=== PATIENT | female | born 1940 | race Caucasian/White ===

== ENCOUNTER 2017-11-25 14:03 | Inpatient (IN) | payer OTHER ==
[~2017-11-25] VITALS: Ht 157.5 cm; Wt 98.4 kg
[2017-11-25] MEDS ORDERED: ACETAMINOPHEN 650 MG SUPPOSITORY RC ONE (14:17)
[2017-11-25] MEDS ORDERED: IPRATROPIUM/ALBUTEROL SULFATE 3 ML SOLUTION IH ONE (14:21)
[2017-11-25 14:22] LABS: BASOPHILS % (AUTO) 0.4 % (0.0-5.0); EOSINOPHILS % (AUTO) 0.7 % (0.0-8.0); LYMPHOCYTES % (AUTO) 6.6 % (21.0-51.0); MEAN CORPUSCULAR HEMOGLOBIN 26.1 pg (27.0-33.0); MEAN CORPUSCULAR HGB CONC 30.6 g/dL (32.0-36.0); MEAN CORPUSCULAR VOLUME 85.3 fL (79-99); MONOCYTES % (AUTO) 7.2 % (3.0-13.0); NEUTROPHILS % (AUTO) 85.1 % (40.0-77.0); NUCLEATED RED BLOOD CELLS 0.1 % (0.0-0.19); PLATELET COUNT (AUTO) 303 K/uL (130-400); RED BLOOD CELL COUNT(AUTO) 3.41 MIL/uL (4.00-5.50); RED CELL DISTRIBUTION WIDTH 17.3 % (11.0-15.5); WHITE BLOOD COUNT (AUTO) 12.4 K/uL (4.8-10.8)
[2017-11-25] MEDS ORDERED: METHYLPREDNISOLONE SOD SUCC 125MG/2ML VIAL ONE ×2 (14:22→23:49)
[2017-11-25 14:36] LABS: CREATININE 1.1 mg/dL (0.5-1.5); POTASSIUM 5.4 mmol/L (3.5-5.1)
[2017-11-25 14:41] LABS: B-TYPE NATRIURETIC PEPTIDE 1470 pg/mL (0-100)
[2017-11-25 14:43] LABS: APPEARANCE,URINE Clear (CLEAR); BILIRUBIN,URINE Negative (NEGATIVE); COLOR,URINE Yellow (YELLOW); GLUCOSE, URINE (UA) Negative (NEGATIVE); KETONES,URINE Negative (NEGATIVE); LEUKOCYTE ESTERASE ,URINE Negative (NEGATIVE); NITRATE,URINE Negative (NEGATIVE); OCCULT BLOOD,URINE Negative (NEGATIVE); PROTEIN,URINE 300 (NEGATIVE); UROBILINOGEN,URINE 0.2 mg/dL (0.2-1.0)
[2017-11-25 14:52] LABS: ALBUMIN 3.1 g/dL (3.5-5.0); BILIRUBIN,TOTAL 0.8 mg/dL (0.2-1.0); TOTAL PROTEIN, SERUM 5.9 g/dL (6.0-8.3)
[2017-11-25 14:55] LABS: AMORPHOUS SEDIMENT,UR Few /LPF (None Seen); BACTERIA,URINE Few /HPF (None Seen); COARSE GRANULAR CASTS,URINE 0-2 /LPF (None Seen); RBC,URINE 0-1 /HPF (0-1); SQUAMOUS EPITHELIAL CELL,UR Rare /LPF (0-2); WBC,URINE 0-1 /HPF (0-1)
[2017-11-25] MEDS ORDERED: LEVOFLOXACIN 750 MG/D5W 150 ML 150 ML ONE (15:02)
[2017-11-25 15:28] LABS: CREATINE KINASE MB 0.5 ng/mL (0.5-3.6)
[2017-11-25] MEDS ORDERED: OSELTAMIVIR PHOSPHATE 75 MG CAP ONE (15:34)
[2017-11-25 15:43] LABS: ABG BASE EXCESS 3.2 mmol/L (-2.0-3.0); ABG HCO3 30.1 mmol/L (21.0-28.0); ABG OXYGEN SATURATION 96.9 % (95.0-99.0); ABG PCO2 55 mmHg (32-45)
[2017-11-25] MEDS ORDERED: FUROSEMIDE 10 MG/ML 4ML VIAL ONE (17:29)
[2017-11-25] MEDS ORDERED: CEFTRIAXONE SODIUM 1 GM ONE (17:30)
[2017-11-25] MEDS ORDERED: LIDOCAINE HCL-MPF 1% 2ML VIAL IVP PRN ×2 (21:30→22:00)
[2017-11-25] MEDS ORDERED: POTASSIUM CHLORIDE 20MEQ/100ML 100 ML IV PRN ×2 (21:30→22:00)
[2017-11-25] MEDS ORDERED: ACETAMINOPHEN 325 MG TAB PO PRN ×2 (21:30)
[2017-11-25] MEDS ORDERED: GUAIFENESIN-DM 200/20 MG 10 ML PO PRN (21:30)
[2017-11-25] MEDS ORDERED: NITROGLYCERIN 0.4 MG SL TAB SL PRN (21:30)
[2017-11-25] MEDS ORDERED: POTASSIUM CHLORIDE 10% ELIXIR 20 MEQ/15 ML UDCUP PO PRN ×2 (21:30→22:00)
[2017-11-25] MEDS ORDERED: ONDANSETRON HCL 4 MG/2 ML VIAL IV PRN (21:30)
[2017-11-25] MEDS ORDERED: GLUCAGON 1MG KIT 1 MG ML IM PRN (22:00)
[2017-11-25] MEDS ORDERED: DEXTROSE 50%-WATER 50 ML DISP.SYRIN IV PRN (22:00)
[2017-11-25] MEDS ORDERED: POTASSIUM CHLORIDE 20 MEQ ERTAB PO PRN (22:00)
[2017-11-25 23:10] LABS: CREATINE KINASE MB 0.7 ng/mL (0.5-3.6); TROPONIN I 0.11 ng/mL (0.00-0.06)
[2017-11-25] MEDS ORDERED: ZOLPIDEM TARTRATE 5 MG TAB ONE (23:17)
[2017-11-26] MEDS ORDERED: IPRATROPIUM/ALBUTEROL SULFATE 3 ML SOLUTION IH ONE ×3 (00:33→11:45)
[2017-11-26] MEDS ORDERED: OSELTAMIVIR PHOSPHATE 75 MG CAP ONE (03:57)
[2017-11-26 04:00] LABS: ABG HCO3 24.8 mmol/L (21.0-28.0); ABG OXYGEN SATURATION 97.8 % (95.0-99.0); ABG PCO2 50 mmHg (32-45)
[2017-11-26 05:58] LABS: MEAN CORPUSCULAR HEMOGLOBIN 26.2 pg (27.0-33.0); MEAN CORPUSCULAR HGB CONC 30.9 g/dL (32.0-36.0); MEAN CORPUSCULAR VOLUME 84.7 fL (79-99); PLATELET COUNT (AUTO) 268 K/uL (130-400); RED BLOOD CELL COUNT(AUTO) 3.19 MIL/uL (4.00-5.50); RED CELL DISTRIBUTION WIDTH 18.3 % (11.0-15.5); WHITE BLOOD COUNT (AUTO) 9.7 K/uL (4.8-10.8)
[2017-11-26] MEDS: IPRATROPIUM/ALBUTEROL SULFATE 3 ML SOLUTION IH SCH ×5 (06:00→23:13)
[2017-11-26 06:06] LABS: CREATININE 1.3 mg/dL (0.5-1.5); POTASSIUM 4.8 mmol/L (3.5-5.1)
[2017-11-26 06:32] LABS: CREATINE KINASE MB 0.8 ng/mL (0.5-3.6); TROPONIN I 0.06 ng/mL (0.00-0.06)
[2017-11-26] MEDS ORDERED: ENOXAPARIN SODIUM 40 MG/0.4 ML SYRINGE SQ ONE (08:02)
[2017-11-26] MEDS ORDERED: FAMOTIDINE 20MG TAB 20 MG TAB ONE (08:02)
[2017-11-26] MEDS ORDERED: ASPIRIN 325 MG TABLET ONE (08:02)
[2017-11-26] MEDS ORDERED: FUROSEMIDE 10 MG/ML 4ML VIAL ONE (08:02)
[2017-11-26] MEDS ORDERED: METHYLPREDNISOLONE SOD SUCC 125MG/2ML VIAL ONE (08:03)
[2017-11-26] MEDS ORDERED: FUROSEMIDE 10 MG/ML 4ML VIAL IVP SCH (09:00)
[2017-11-26] MEDS ORDERED: ENOXAPARIN SODIUM 40 MG/0.4 ML SYRINGE SQ SCH (09:00)
[2017-11-26] MEDS ORDERED: HYDRALAZINE HCL 20 MG/ML VIAL IV PRN (10:15)
[2017-11-26 11:33] LABS: INR 2.61 (0.85-1.15); PARTIAL THROMBOPLASTIN TIME 36.8 SEC (26.3-35.5); PROTHROMBIN TIME 26.9 SEC (9.6-11.6)
[2017-11-26] MEDS ORDERED: ACETYLCYSTEINE 20% 200MG/ML 4ML VIAL ONE (11:45)
[2017-11-26] MEDS: ACETYLCYSTEINE 20% 200MG/ML 4ML VIAL IH SCH ×2 (11:47→18:17)
[2017-11-26] MEDS ORDERED: ALBUTEROL SULFATE 0.083% 2.5 MG/3 ML INH IH SCH (12:00)
[2017-11-26] MEDS ORDERED: GUAIFENESIN-CODEINE 5 ML SYRUP PO PRN (12:30)
[2017-11-26 15:33] VITALS: BP 176/54
[2017-11-26] MEDS: METHYLPREDNISOLONE SOD SUCC 125MG/2ML VIAL IVP SCH ×3 (16:08→21:33)
[2017-11-26] MEDS: LEVOFLOXACIN 500 MG/D5W 100 ML 100 ML IV SCH ×2 (16:08→21:33)
[2017-11-26] MEDS: NITROGLYCERIN 1GM/1 INCH PACKET TD SCH ×2 (16:09→18:07)
[2017-11-26] MEDS: ASPIRIN 325 MG TABLET PO SCH (16:09)
[2017-11-26] MEDS: FAMOTIDINE 20MG TAB 20 MG TAB PO SCH ×2 (16:09→21:34)
[2017-11-26] MEDS: OSELTAMIVIR PHOSPHATE 75 MG CAP PO SCH ×2 (16:09→21:32)
[2017-11-26] MEDS: WARFARIN SODIUM 2 MG TAB PO SCH (16:18)
[2017-11-26] MEDS: INSULIN HUMULIN R 100 UNIT/ML 3ML SQ SCH ×2 (17:31→22:11)
[2017-11-26] MEDS: BUDESONIDE 0.5 MG/2 ML INH IH SCH (18:17)
[2017-11-26 20:09] VITALS: BP 135/58
[2017-11-26] MEDS ORDERED: FUROSEMIDE 10 MG/ML 2ML VIAL IVP SCH (21:00)
[2017-11-26] MEDS ORDERED: ZOLPIDEM TARTRATE 5 MG TAB PO SCH (21:00)
[2017-11-26] MEDS: FUROSEMIDE 10 MG/ML 4ML VIAL IVP SCH (21:33)
[2017-11-26] MEDS ORDERED: ZOLPIDEM TARTRATE 5 MG TAB ONE (21:38)
[2017-11-27] VITALS (7 sets, daily range): BP systolic 141–182; BP diastolic 61–78
[2017-11-27] MEDS: NITROGLYCERIN 1GM/1 INCH PACKET TD SCH ×2 (02:40→09:42)
[2017-11-27] MEDS: IPRATROPIUM/ALBUTEROL SULFATE 3 ML SOLUTION IH SCH ×4 (05:01→22:58)
[2017-11-27] MEDS: ACETYLCYSTEINE 20% 200MG/ML 4ML VIAL IH SCH (05:01)
[2017-11-27] MEDS: METHYLPREDNISOLONE SOD SUCC 125MG/2ML VIAL IVP SCH ×2 (05:12→20:53)
[2017-11-27 05:18] LABS: HEMATOCRIT 26.1 % (36-48); MEAN CORPUSCULAR HEMOGLOBIN 27.1 pg (27.0-33.0); MEAN CORPUSCULAR HGB CONC 32.3 g/dL (32.0-36.0); MEAN CORPUSCULAR VOLUME 83.9 fL (79-99); PLATELET COUNT (AUTO) 282 K/uL (130-400); RED BLOOD CELL COUNT(AUTO) 3.11 MIL/uL (4.00-5.50); RED CELL DISTRIBUTION WIDTH 17.6 % (11.0-15.5); WHITE BLOOD COUNT (AUTO) 13.9 K/uL (4.8-10.8)
[2017-11-27 05:29] LABS: CREATININE 1.5 mg/dL (0.5-1.5); POTASSIUM 4.5 mmol/L (3.5-5.1)
[2017-11-27 05:30] LABS: INR 2.64 (0.85-1.15); PARTIAL THROMBOPLASTIN TIME 33.7 SEC (26.3-35.5); PROTHROMBIN TIME 27.2 SEC (9.6-11.6)
[2017-11-27 05:53] LABS: B-TYPE NATRIURETIC PEPTIDE 874 pg/mL (0-100)
[2017-11-27] MEDS: BUDESONIDE 0.5 MG/2 ML INH IH SCH ×2 (05:56→19:33)
[2017-11-27] MEDS: INSULIN HUMULIN R 100 UNIT/ML 3ML SQ SCH ×4 (06:23→20:40)
[2017-11-27] MEDS: FAMOTIDINE 20MG TAB 20 MG TAB PO SCH ×2 (07:56→20:52)
[2017-11-27] MEDS: ASPIRIN 325 MG TABLET PO SCH (07:56)
[2017-11-27] MEDS: OSELTAMIVIR PHOSPHATE 75 MG CAP PO SCH ×2 (07:56→20:52)
[2017-11-27] MEDS: FUROSEMIDE 10 MG/ML 4ML VIAL IVP SCH (07:56)
[2017-11-27] MEDS ORDERED: ENOXAPARIN SODIUM 40 MG/0.4 ML SYRINGE SQ SCH (09:00)
[2017-11-27] MEDS ORDERED: TIOT4MIS5 IH (10:21)
[2017-11-27] MEDS ORDERED: LOSA100T29 PO (10:21)
[2017-11-27] MEDS ORDERED: TRAM50TA4 PO (10:21)
[2017-11-27] MEDS ORDERED: FLUT16H NASAL (10:21)
[2017-11-27] MEDS ORDERED: CARV25TA PO (10:21)
[2017-11-27] MEDS ORDERED: OMEG100T PO (10:21)
[2017-11-27] MEDS ORDERED: WARF3TAB29 PO (10:21)
[2017-11-27] MEDS ORDERED: GABA-531 PO (10:21)
[2017-11-27] MEDS ORDERED: ATOR40TA69 PO (10:21)
[2017-11-27] MEDS ORDERED: BUDE10.2 IH ×2 (10:21→10:27)
[2017-11-27] MEDS ORDERED: ALBUTEROL IH (10:21)
[2017-11-27] MEDS ORDERED: DOXA4TAB3 PO (10:21)
[2017-11-27] MEDS ORDERED: SPIR25TA4 PO (10:21)
[2017-11-27] MEDS ORDERED: AEC81 PO (10:21)
[2017-11-27] MEDS ORDERED: CELE200 PO (10:21)
[2017-11-27] MEDS ORDERED: FURO40TA5 PO (10:21)
[2017-11-27] MEDS ORDERED: MULT-1258 PO (10:21)
[2017-11-27] MEDS ORDERED: ROPI0.5T5 PO (10:21)
[2017-11-27] MEDS ORDERED: TYLENOL PM PO (10:21)
[2017-11-27] MEDS ORDERED: ESCI5TAB10 PO (10:21)
[2017-11-27] MEDS ORDERED: METF850T2 PO (10:21)
[2017-11-27] MEDS ORDERED: IRON15TA3 PO (10:21)
[2017-11-27] MEDS ORDERED: DILT240C50 PO (10:21)
[2017-11-27] MEDS ORDERED: OMEP20TA25 PO (10:21)
[2017-11-27] MEDS ORDERED: GLIM1TAB2 PO (10:21)
[2017-11-27] MEDS ORDERED: ALBUTEROL SULFATE 0.083% 2.5 MG/3 ML INH IH PRN (10:45)
[2017-11-27] MEDS ORDERED: SPIRONOLACTONE 25 MG TAB PO SCH (11:00)
[2017-11-27] MEDS ORDERED: CARVEDILOL 25 MG TABLET PO SCH (11:00)
[2017-11-27] MEDS ORDERED: GLIMEPIRIDE 2 MG TABLET PO SCH (11:00)
[2017-11-27] MEDS ORDERED: GABAPENTIN 300 MG CAPSULE PO SCH (11:00)
[2017-11-27] MEDS ORDERED: DILTIAZEM HCL 120 MG CAP.SR.24H PO SCH (11:00)
[2017-11-27] MEDS ORDERED: IPRATROPIUM 0.5 MG/2.5 ML INH IH SCH (12:00)
[2017-11-27] MEDS ORDERED: ALBUTEROL SULFATE 0.083% 2.5 MG/3 ML INH IH SCH (12:00)
[2017-11-27] MEDS ORDERED: HYDRALAZINE HCL 20 MG/ML VIAL IV PRN (13:00)
[2017-11-27] MEDS ORDERED: ACETYLCYSTEINE 20% 200MG/ML 4ML VIAL IH SCH (14:00)
[2017-11-27] MEDS: WARFARIN SODIUM 2 MG TAB PO SCH (16:45)
[2017-11-27] MEDS: ATORVASTATIN CALCIUM 40 MG TABLET PO SCH (20:51)
[2017-11-27] MEDS: FUROSEMIDE 10 MG/ML 2ML VIAL IVP SCH (20:51)
[2017-11-27] MEDS: DOXAZOSIN MESYLATE 2 MG TABLET PO SCH (20:51)
[2017-11-27] MEDS: LOSARTAN 100 MG TABLET PO SCH (20:52)
[2017-11-27] MEDS: ROPINIROLE HCL 1 MG TABLET PO SCH (20:52)
[2017-11-27] MEDS: LEVOFLOXACIN 500 MG/D5W 100 ML 100 ML IV SCH (20:52)
[2017-11-27] MEDS: CARVEDILOL 25 MG TABLET PO SCH (20:53)
[2017-11-28 00:50] VITALS: BP 128/54
[2017-11-28] MEDS: NITROGLYCERIN 1GM/1 INCH PACKET TD SCH ×2 (03:19→10:33)
[2017-11-28 04:18] VITALS: BP 167/74
[2017-11-28 04:35] LABS: CREATININE 1.2 mg/dL (0.5-1.5); POTASSIUM 5.2 mmol/L (3.5-5.1)
[2017-11-28 04:36] LABS: MEAN CORPUSCULAR HEMOGLOBIN 26.6 pg (27.0-33.0); MEAN CORPUSCULAR HGB CONC 31.2 g/dL (32.0-36.0); MEAN CORPUSCULAR VOLUME 85.2 fL (79-99); NUCLEATED RED BLOOD CELLS 0.1 % (0.0-0.19); PLATELET COUNT (AUTO) 228 K/uL (130-400); RED BLOOD CELL COUNT(AUTO) 3.06 MIL/uL (4.00-5.50); RED CELL DISTRIBUTION WIDTH 17.8 % (11.0-15.5); WHITE BLOOD COUNT (AUTO) 11.4 K/uL (4.8-10.8)
[2017-11-28 04:39] LABS: INR 2.81 (0.85-1.15); PROTHROMBIN TIME 28.9 SEC (9.6-11.6)
[2017-11-28] MEDS: BUDESONIDE 0.5 MG/2 ML INH IH SCH ×2 (06:23→18:38)
[2017-11-28] MEDS: IPRATROPIUM/ALBUTEROL SULFATE 3 ML SOLUTION IH SCH ×4 (06:23→23:21)
[2017-11-28] MEDS: INSULIN HUMULIN R 100 UNIT/ML 3ML SQ SCH ×4 (06:33→21:00)
[2017-11-28 07:00] VITALS: BP 161/60
[2017-11-28] MEDS ORDERED: SPIRONOLACTONE 25 MG TAB PO SCH (09:00)
[2017-11-28] MEDS: CARVEDILOL 25 MG TABLET PO SCH ×2 (09:00→22:13)
[2017-11-28] MEDS: GUAIFENESIN/DEXTROMETHORPHAN 1 EACH TAB.SR.12H PO SCH ×2 (09:30→21:00)
[2017-11-28] MEDS: FUROSEMIDE 10 MG/ML 2ML VIAL IVP SCH ×2 (10:31→22:13)
[2017-11-28] MEDS: METHYLPREDNISOLONE SOD SUCC 125MG/2ML VIAL IVP SCH ×2 (10:31→22:14)
[2017-11-28] MEDS: OSELTAMIVIR PHOSPHATE 75 MG CAP PO SCH ×2 (10:32→22:13)
[2017-11-28] MEDS: FAMOTIDINE 20MG TAB 20 MG TAB PO SCH ×2 (10:32→22:11)
[2017-11-28] MEDS: GABAPENTIN 300 MG CAPSULE PO SCH (10:32)
[2017-11-28] MEDS: DILTIAZEM HCL 120 MG CAP.SR.24H PO SCH (10:32)
[2017-11-28] MEDS: GLIMEPIRIDE 2 MG TABLET PO SCH (10:32)
[2017-11-28] MEDS: ASPIRIN 325 MG TABLET PO SCH (10:33)
[2017-11-28 11:00] VITALS: BP 186/81
[2017-11-28 16:00] VITALS: BP 162/68
[2017-11-28] MEDS: WARFARIN SODIUM 5 MG TAB PO SCH (16:59)
[2017-11-28] MEDS ORDERED: ZOLP5TAB2 PO (18:33)
[2017-11-28 19:35] VITALS: BP 153/65
[2017-11-28] MEDS: LEVOFLOXACIN 500 MG/D5W 100 ML 100 ML IV SCH (22:11)
[2017-11-28] MEDS: ATORVASTATIN CALCIUM 40 MG TABLET PO SCH (22:11)
[2017-11-28] MEDS: ROPINIROLE HCL 1 MG TABLET PO SCH (22:12)
[2017-11-28] MEDS: DOXAZOSIN MESYLATE 2 MG TABLET PO SCH (22:12)
[2017-11-28] MEDS: ZOLPIDEM TARTRATE 5 MG TAB PO SCH (22:12)
[2017-11-28] MEDS: LOSARTAN 100 MG TABLET PO SCH (22:13)
[2017-11-29] VITALS (7 sets, daily range): BP systolic 142–187; BP diastolic 52–83
[2017-11-29] MEDS: NITROGLYCERIN 1GM/1 INCH PACKET TD SCH (01:33)
[2017-11-29 04:18] LABS: HEMATOCRIT 25.7 % (36-48); MEAN CORPUSCULAR HEMOGLOBIN 27.5 pg (27.0-33.0); MEAN CORPUSCULAR HGB CONC 32.6 g/dL (32.0-36.0); MEAN CORPUSCULAR VOLUME 84.4 fL (79-99); PLATELET COUNT (AUTO) 231 K/uL (130-400); RED BLOOD CELL COUNT(AUTO) 3.04 MIL/uL (4.00-5.50); RED CELL DISTRIBUTION WIDTH 17.6 % (11.0-15.5); WHITE BLOOD COUNT (AUTO) 9.1 K/uL (4.8-10.8)
[2017-11-29 04:28] LABS: INR 2.93 (0.85-1.15); PROTHROMBIN TIME 30.1 SEC (9.6-11.6)
[2017-11-29 04:34] LABS: CREATININE 1.1 mg/dL (0.5-1.5); POTASSIUM 4.1 mmol/L (3.5-5.1)
[2017-11-29 04:44] LABS: PARTIAL THROMBOPLASTIN TIME 30.8 SEC (26.3-35.5)
[2017-11-29] MEDS: INSULIN HUMULIN R 100 UNIT/ML 3ML SQ SCH ×4 (06:00→20:43)
[2017-11-29] MEDS: IPRATROPIUM/ALBUTEROL SULFATE 3 ML SOLUTION IH SCH ×3 (06:26→18:42)
[2017-11-29] MEDS: BUDESONIDE 0.5 MG/2 ML INH IH SCH ×2 (06:26→18:42)
[2017-11-29] MEDS: GUAIFENESIN/DEXTROMETHORPHAN 1 EACH TAB.SR.12H PO SCH ×2 (09:00→20:40)
[2017-11-29] MEDS: CARVEDILOL 25 MG TABLET PO SCH ×2 (09:52→20:41)
[2017-11-29] MEDS: OSELTAMIVIR PHOSPHATE 75 MG CAP PO SCH ×2 (09:53→20:40)
[2017-11-29] MEDS: FAMOTIDINE 20MG TAB 20 MG TAB PO SCH ×2 (09:53→20:41)
[2017-11-29] MEDS: FUROSEMIDE 20 MG TABLET PO SCH (09:53)
[2017-11-29] MEDS: ASPIRIN 325 MG TABLET PO SCH (09:53)
[2017-11-29] MEDS: PREDNISONE 20 MG TABLET PO SCH (09:53)
[2017-11-29] MEDS: GLIMEPIRIDE 2 MG TABLET PO SCH (09:53)
[2017-11-29] MEDS: GABAPENTIN 300 MG CAPSULE PO SCH (09:53)
[2017-11-29] MEDS: DILTIAZEM HCL 120 MG CAP.SR.24H PO SCH (09:54)
[2017-11-29] MEDS ORDERED: ACETYLCYSTEINE 20% 200MG/ML 4ML VIAL IH SCH (14:00)
[2017-11-29] MEDS: WARFARIN SODIUM 5 MG TAB PO SCH (17:17)
[2017-11-29] MEDS: LEVOFLOXACIN 500 MG TABLET PO SCH (20:40)
[2017-11-29] MEDS: ROPINIROLE HCL 1 MG TABLET PO SCH (20:40)
[2017-11-29] MEDS: ATORVASTATIN CALCIUM 40 MG TABLET PO SCH (20:41)
[2017-11-29] MEDS: LOSARTAN 100 MG TABLET PO SCH (20:41)
[2017-11-29] MEDS: DOXAZOSIN MESYLATE 2 MG TABLET PO SCH (20:41)
[2017-11-29] MEDS: ZOLPIDEM TARTRATE 5 MG TAB PO SCH (20:41)
[2017-11-30] MEDS: IPRATROPIUM/ALBUTEROL SULFATE 3 ML SOLUTION IH SCH ×4 (01:46→19:18)
[2017-11-30 03:51] VITALS: BP 143/56
[2017-11-30 04:28] LABS: POTASSIUM 3.7 mmol/L (3.5-5.1)
[2017-11-30 05:06] LABS: INR 3.17 (0.85-1.15); PARTIAL THROMBOPLASTIN TIME 29.4 SEC (26.3-35.5); PROTHROMBIN TIME 32.5 SEC (9.6-11.6)
[2017-11-30] MEDS: POTASSIUM CHLORIDE 20 MEQ ERTAB PO PRN ×2 (05:46→08:25)
[2017-11-30] MEDS: INSULIN HUMULIN R 100 UNIT/ML 3ML SQ SCH ×4 (05:49→20:46)
[2017-11-30 07:00] VITALS: BP 184/75
[2017-11-30] MEDS: BUDESONIDE 0.5 MG/2 ML INH IH SCH ×2 (07:12→19:40)
[2017-11-30] MEDS: FUROSEMIDE 20 MG TABLET PO SCH (08:20)
[2017-11-30] MEDS: FAMOTIDINE 20MG TAB 20 MG TAB PO SCH ×2 (08:20→20:31)
[2017-11-30] MEDS: GLIMEPIRIDE 2 MG TABLET PO SCH (08:20)
[2017-11-30] MEDS: GABAPENTIN 300 MG CAPSULE PO SCH (08:20)
[2017-11-30] MEDS: PREDNISONE 20 MG TABLET PO SCH (08:21)
[2017-11-30] MEDS: CARVEDILOL 25 MG TABLET PO SCH ×2 (08:21→20:31)
[2017-11-30] MEDS: OSELTAMIVIR PHOSPHATE 75 MG CAP PO SCH ×2 (08:21→20:29)
[2017-11-30] MEDS: ASPIRIN 325 MG TABLET PO SCH (08:21)
[2017-11-30] MEDS: GUAIFENESIN/DEXTROMETHORPHAN 1 EACH TAB.SR.12H PO SCH ×2 (08:21→20:31)
[2017-11-30] MEDS: DILTIAZEM HCL 120 MG CAP.SR.24H PO SCH (08:21)
[2017-11-30] MEDS: ACETYLCYSTEINE 20% 200MG/ML 4ML VIAL IH SCH ×3 (09:00→21:00)
[2017-11-30 11:00] VITALS: BP 178/73
[2017-11-30] MEDS: ACETYLCYSTEINE 10% 100MG/ML 4ML VIAL IH SCH ×2 (11:14→19:17)
[2017-11-30 16:00] VITALS: BP 172/54
[2017-11-30] MEDS: WARFARIN SODIUM 5 MG TAB PO SCH (16:49)
[2017-11-30 19:40] VITALS: BP 156/60
[2017-11-30] MEDS ORDERED: INSULIN HUMULIN R 100 UNIT/ML 3ML SQ ONE (20:27)
[2017-11-30] MEDS: ZOLPIDEM TARTRATE 5 MG TAB PO SCH (20:29)
[2017-11-30] MEDS: DOXAZOSIN MESYLATE 2 MG TABLET PO SCH (20:29)
[2017-11-30] MEDS: LEVOFLOXACIN 500 MG TABLET PO SCH (20:29)
[2017-11-30] MEDS: ATORVASTATIN CALCIUM 40 MG TABLET PO SCH (20:29)
[2017-11-30] MEDS: ROPINIROLE HCL 1 MG TABLET PO SCH (20:30)
[2017-11-30] MEDS: LOSARTAN 100 MG TABLET PO SCH (20:31)
[2017-11-30 22:52] VITALS: BP 160/61
[2017-12-01] VITALS (7 sets, daily range): BP systolic 140–180; BP diastolic 60–74
[2017-12-01] MEDS: IPRATROPIUM/ALBUTEROL SULFATE 3 ML SOLUTION IH SCH ×4 (01:17→18:34)
[2017-12-01] MEDS: ACETYLCYSTEINE 10% 100MG/ML 4ML VIAL IH SCH ×4 (01:18→18:34)
[2017-12-01 04:45] LABS: INR 2.69 (0.85-1.15); PROTHROMBIN TIME 27.7 SEC (9.6-11.6)
[2017-12-01 04:46] LABS: POTASSIUM 3.9 mmol/L (3.5-5.1)
[2017-12-01] MEDS: INSULIN HUMULIN R 100 UNIT/ML 3ML SQ SCH ×4 (05:29→22:31)
[2017-12-01] MEDS: BUDESONIDE 0.5 MG/2 ML INH IH SCH ×2 (06:00→18:20)
[2017-12-01] MEDS: ASPIRIN 325 MG TABLET PO SCH (09:54)
[2017-12-01] MEDS: DILTIAZEM HCL 120 MG CAP.SR.24H PO SCH (09:55)
[2017-12-01] MEDS: GABAPENTIN 300 MG CAPSULE PO SCH (09:55)
[2017-12-01] MEDS: GUAIFENESIN/DEXTROMETHORPHAN 1 EACH TAB.SR.12H PO SCH ×2 (09:55→22:28)
[2017-12-01] MEDS: GLIMEPIRIDE 2 MG TABLET PO SCH (09:56)
[2017-12-01] MEDS: CARVEDILOL 25 MG TABLET PO SCH ×2 (09:56→22:26)
[2017-12-01] MEDS: FAMOTIDINE 20MG TAB 20 MG TAB PO SCH ×2 (09:56→22:27)
[2017-12-01] MEDS: FUROSEMIDE 20 MG TABLET PO SCH (09:56)
[2017-12-01] MEDS: FUROSEMIDE 10 MG/ML 4ML VIAL IV SCH (15:13)
[2017-12-01] MEDS: WARFARIN SODIUM 5 MG TAB PO SCH (17:00)
[2017-12-01] MEDS: ZOLPIDEM TARTRATE 5 MG TAB PO SCH (22:25)
[2017-12-01] MEDS: ATORVASTATIN CALCIUM 40 MG TABLET PO SCH (22:26)
[2017-12-01] MEDS: DOXAZOSIN MESYLATE 2 MG TABLET PO SCH (22:27)
[2017-12-01] MEDS: LOSARTAN 100 MG TABLET PO SCH (22:27)
[2017-12-01] MEDS: LEVOFLOXACIN 500 MG TABLET PO SCH (22:27)
[2017-12-01] MEDS: ROPINIROLE HCL 1 MG TABLET PO SCH (22:28)
[2017-12-02] MEDS: IPRATROPIUM/ALBUTEROL SULFATE 3 ML SOLUTION IH SCH ×4 (00:21→19:21)
[2017-12-02 04:03] VITALS: BP 131/65
[2017-12-02] MEDS: FUROSEMIDE 10 MG/ML 4ML VIAL IV SCH ×2 (04:16→17:42)
[2017-12-02 04:58] LABS: MEAN CORPUSCULAR HEMOGLOBIN 26.1 pg (27.0-33.0); MEAN CORPUSCULAR HGB CONC 31.2 g/dL (32.0-36.0); MEAN CORPUSCULAR VOLUME 83.6 fL (79-99); PLATELET COUNT (AUTO) 252 K/uL (130-400); RED BLOOD CELL COUNT(AUTO) 3.46 MIL/uL (4.00-5.50); RED CELL DISTRIBUTION WIDTH 17.2 % (11.0-15.5); WHITE BLOOD COUNT (AUTO) 8.6 K/uL (4.8-10.8)
[2017-12-02 05:08] LABS: CREATININE 1.1 mg/dL (0.5-1.5); POTASSIUM 3.5 mmol/L (3.5-5.1)
[2017-12-02 05:11] LABS: INR 2.69 (0.85-1.15); PARTIAL THROMBOPLASTIN TIME 28.3 SEC (26.3-35.5); PROTHROMBIN TIME 27.7 SEC (9.6-11.6)
[2017-12-02] MEDS: POTASSIUM CHLORIDE 20 MEQ ERTAB PO PRN ×2 (05:34→09:53)
[2017-12-02] MEDS: ACETYLCYSTEINE 10% 100MG/ML 4ML VIAL IH SCH ×4 (05:52→19:21)
[2017-12-02] MEDS: INSULIN HUMULIN R 100 UNIT/ML 3ML SQ SCH ×4 (05:57→21:00)
[2017-12-02] MEDS: BUDESONIDE 0.5 MG/2 ML INH IH SCH ×2 (06:27→19:14)
[2017-12-02 07:35] VITALS: BP 158/51
[2017-12-02] MEDS: FUROSEMIDE 20 MG TABLET PO SCH (09:00)
[2017-12-02] MEDS: DILTIAZEM HCL 120 MG CAP.SR.24H PO SCH (09:48)
[2017-12-02] MEDS: GUAIFENESIN/DEXTROMETHORPHAN 1 EACH TAB.SR.12H PO SCH ×2 (09:48→20:56)
[2017-12-02] MEDS: FAMOTIDINE 20MG TAB 20 MG TAB PO SCH ×2 (09:48→20:56)
[2017-12-02] MEDS: ASPIRIN 325 MG TABLET PO SCH (09:48)
[2017-12-02] MEDS: GABAPENTIN 300 MG CAPSULE PO SCH (09:48)
[2017-12-02] MEDS: PREDNISONE 20 MG TABLET PO SCH (09:49)
[2017-12-02] MEDS: GLIMEPIRIDE 2 MG TABLET PO SCH (09:49)
[2017-12-02] MEDS: CARVEDILOL 25 MG TABLET PO SCH ×2 (09:49→20:55)
[2017-12-02 11:40] VITALS: BP 157/51
[2017-12-02 16:30] VITALS: BP 147/65
[2017-12-02] MEDS: WARFARIN SODIUM 5 MG TAB PO SCH (17:42)
[2017-12-02 19:33] VITALS: BP 146/44
[2017-12-02] MEDS: LEVOFLOXACIN 500 MG TABLET PO SCH (20:54)
[2017-12-02] MEDS: LOSARTAN 100 MG TABLET PO SCH (20:54)
[2017-12-02] MEDS: DOXAZOSIN MESYLATE 2 MG TABLET PO SCH (20:55)
[2017-12-02] MEDS: ZOLPIDEM TARTRATE 5 MG TAB PO SCH (20:56)
[2017-12-02] MEDS: ATORVASTATIN CALCIUM 40 MG TABLET PO SCH (20:56)
[2017-12-02] MEDS: ROPINIROLE HCL 1 MG TABLET PO SCH (20:56)
[2017-12-02 23:34] VITALS: BP 120/45
[2017-12-03] MEDS: IPRATROPIUM/ALBUTEROL SULFATE 3 ML SOLUTION IH SCH ×4 (00:04→19:48)
[2017-12-03] MEDS: ACETYLCYSTEINE 10% 100MG/ML 4ML VIAL IH SCH ×4 (00:04→19:48)
[2017-12-03 03:46] LABS: CREATININE 1.3 mg/dL (0.5-1.5); POTASSIUM 3.9 mmol/L (3.5-5.1)
[2017-12-03 03:48] LABS: B-TYPE NATRIURETIC PEPTIDE 311 pg/mL (0-100)
[2017-12-03 03:52] LABS: HEMATOCRIT 27.5 % (36-48); MEAN CORPUSCULAR HEMOGLOBIN 27.8 pg (27.0-33.0); MEAN CORPUSCULAR HGB CONC 33.4 g/dL (32.0-36.0); MEAN CORPUSCULAR VOLUME 83.2 fL (79-99); NUCLEATED RED BLOOD CELLS 0.1 % (0.0-0.19); PLATELET COUNT (AUTO) 204 K/uL (130-400); RED CELL DISTRIBUTION WIDTH 17.4 % (11.0-15.5); WHITE BLOOD COUNT (AUTO) 10.6 K/uL (4.8-10.8)
[2017-12-03 04:01] VITALS: BP 152/56
[2017-12-03] MEDS: FUROSEMIDE 10 MG/ML 4ML VIAL IV SCH ×2 (05:21→16:36)
[2017-12-03] MEDS: BUDESONIDE 0.5 MG/2 ML INH IH SCH ×2 (06:18→20:13)
[2017-12-03] MEDS: INSULIN HUMULIN R 100 UNIT/ML 3ML SQ SCH ×4 (06:24→22:02)
[2017-12-03 07:44] VITALS: BP 129/56
[2017-12-03] MEDS: FUROSEMIDE 20 MG TABLET PO SCH (09:00)
[2017-12-03] MEDS: CARVEDILOL 25 MG TABLET PO SCH ×2 (09:49→22:06)
[2017-12-03] MEDS: DILTIAZEM HCL 120 MG CAP.SR.24H PO SCH (09:50)
[2017-12-03] MEDS: GABAPENTIN 300 MG CAPSULE PO SCH (09:50)
[2017-12-03] MEDS: PREDNISONE 20 MG TABLET PO SCH (09:50)
[2017-12-03] MEDS: GLIMEPIRIDE 2 MG TABLET PO SCH (09:55)
[2017-12-03] MEDS: FAMOTIDINE 20MG TAB 20 MG TAB PO SCH ×2 (09:55→22:04)
[2017-12-03] MEDS: ASPIRIN 325 MG TABLET PO SCH (09:55)
[2017-12-03] MEDS: GUAIFENESIN/DEXTROMETHORPHAN 1 EACH TAB.SR.12H PO SCH ×2 (09:55→22:05)
[2017-12-03 11:30] VITALS: BP 119/47
[2017-12-03 16:29] VITALS: BP 160/67
[2017-12-03] MEDS: WARFARIN SODIUM 5 MG TAB PO SCH (16:35)
[2017-12-03 19:45] VITALS: BP 139/73
[2017-12-03] MEDS ORDERED: POTASSIUM CHLORIDE 10 MEQ/TAB.SA PO ONE ×2 (21:55→21:56)
[2017-12-03] MEDS: ROPINIROLE HCL 1 MG TABLET PO SCH (22:04)
[2017-12-03] MEDS: DOXAZOSIN MESYLATE 2 MG TABLET PO SCH (22:04)
[2017-12-03] MEDS: LEVOFLOXACIN 500 MG TABLET PO SCH (22:05)
[2017-12-03] MEDS: LOSARTAN 100 MG TABLET PO SCH (22:05)
[2017-12-03] MEDS: ATORVASTATIN CALCIUM 40 MG TABLET PO SCH (22:06)
[2017-12-03] MEDS: ZOLPIDEM TARTRATE 5 MG TAB PO SCH (22:14)
[2017-12-03 23:39] VITALS: BP 118/55
[2017-12-04] MEDS ORDERED: POTASSIUM CHLORIDE 10 MEQ/TAB.SA PO ONE ×2 (00:20)
[2017-12-04] MEDS: IPRATROPIUM/ALBUTEROL SULFATE 3 ML SOLUTION IH SCH ×3 (00:47→11:05)
[2017-12-04] MEDS: ACETYLCYSTEINE 10% 100MG/ML 4ML VIAL IH SCH ×3 (00:48→11:06)
[2017-12-04 03:55] VITALS: BP 142/62
[2017-12-04 04:37] LABS: MEAN CORPUSCULAR HEMOGLOBIN 26.1 pg (27.0-33.0); MEAN CORPUSCULAR HGB CONC 31.2 g/dL (32.0-36.0); MEAN CORPUSCULAR VOLUME 83.6 fL (79-99); PLATELET COUNT (AUTO) 227 K/uL (130-400); RED BLOOD CELL COUNT(AUTO) 3.59 MIL/uL (4.00-5.50); RED CELL DISTRIBUTION WIDTH 17.7 % (11.0-15.5); WHITE BLOOD COUNT (AUTO) 9.1 K/uL (4.8-10.8)
[2017-12-04 04:39] LABS: INR 2.09 (0.85-1.15); PARTIAL THROMBOPLASTIN TIME 26.4 SEC (26.3-35.5); PROTHROMBIN TIME 21.6 SEC (9.6-11.6)
[2017-12-04 04:46] LABS: CREATININE 1.3 mg/dL (0.5-1.5)
[2017-12-04] MEDS: FUROSEMIDE 10 MG/ML 4ML VIAL IV SCH (05:34)
[2017-12-04] MEDS: INSULIN HUMULIN R 100 UNIT/ML 3ML SQ SCH ×2 (05:52→11:58)
[2017-12-04] MEDS: BUDESONIDE 0.5 MG/2 ML INH IH SCH (06:49)
[2017-12-04 07:38] VITALS: BP_SYST 104; BP_SYST 124; BP_DIAS 51; BP_DIAS 56
[2017-12-04] MEDS: GUAIFENESIN/DEXTROMETHORPHAN 1 EACH TAB.SR.12H PO SCH (09:37)
[2017-12-04] MEDS: GLIMEPIRIDE 2 MG TABLET PO SCH (09:37)
[2017-12-04] MEDS: GABAPENTIN 300 MG CAPSULE PO SCH (09:37)
[2017-12-04] MEDS: CARVEDILOL 25 MG TABLET PO SCH (09:37)
[2017-12-04] MEDS: ASPIRIN 325 MG TABLET PO SCH (09:37)
[2017-12-04] MEDS: DILTIAZEM HCL 120 MG CAP.SR.24H PO SCH (09:37)
[2017-12-04] MEDS: FAMOTIDINE 20MG TAB 20 MG TAB PO SCH (09:37)
[2017-12-04] MEDS: FUROSEMIDE 20 MG TABLET PO SCH (09:38)
[2017-12-04] MEDS: PREDNISONE 20 MG TABLET PO SCH (09:38)
[2017-12-04 11:26] VITALS: BP 112/49
== END 2017-12-04 14:42 | disposition home or self-care (01) | DRG 291 ==
LOC: EDH 14:03 → EDHIP 16:00 → 2AH 11-26 15:10
PROVIDERS: ADMIT Internal Medicine; ATTEND Internal Medicine
PROC: 5A09357 Assistance with Respiratory Ventilation, Less than 24 Consecutive Hours, Continuous Positive Airway Pressure (ICD-10-PCS; principal; 2017-11-28)
DX: I11.0 Hypertensive heart disease with heart failure (principal); J18.9 Pneumonia, unspecified organism; J96.01 Acute respiratory failure with hypoxia; J44.0 Chronic obstructive pulmonary disease with (acute) lower respiratory infection; J44.1 Chronic obstructive pulmonary disease with (acute) exacerbation; I50.33 Acute on chronic diastolic (congestive) heart failure; E11.42 Type 2 diabetes mellitus with diabetic polyneuropathy; D64.9 Anemia, unspecified; I35.1 Nonrheumatic aortic (valve) insufficiency; E66.01 Morbid (severe) obesity due to excess calories; J10.1 Influenza due to other identified influenza virus with other respiratory manifestations; I25.10 Atherosclerotic heart disease of native coronary artery without angina pectoris; Z95.1 Presence of aortocoronary bypass graft; M19.90 Unspecified osteoarthritis, unspecified site; E78.5 Hyperlipidemia, unspecified; G47.33 Obstructive sleep apnea (adult) (pediatric); J20.9 Acute bronchitis, unspecified; G25.81 Restless legs syndrome; G47.00 Insomnia, unspecified; I45.9 Conduction disorder, unspecified; Z96.653 Presence of artificial knee joint, bilateral; Z79.01 Long term (current) use of anticoagulants; Z79.4 Long term (current) use of insulin; Z95.2 Presence of prosthetic heart valve; Z95.0 Presence of cardiac pacemaker; Z90.49 Acquired absence of other specified parts of digestive tract; Z87.891 Personal history of nicotine dependence; Z87.74 Personal history of (corrected) congenital malformations of heart and circulatory system; Z86.73 Personal history of transient ischemic attack (TIA), and cerebral infarction without residual deficits; Z85.038 Personal history of other malignant neoplasm of large intestine; Z68.39 Body mass index [BMI] 39.0-39.9, adult; Z88.8 Allergy status to other drugs, medicaments and biological substances; Z82.49 Family history of ischemic heart disease and other diseases of the circulatory system
CPT/HCPCS: 36415; 36600; 71045; 71250; 80048; 80053; 81001; 82550; 82553; 82803; 82948; 83605; 83874; 83880; 84132; 84484; 85025; 85027; 85378; 85610; 85730; 87040; 87804; 93005; 93306; 93970; 94640; 94660; 94664; 94667; 94668; 94760; 99291; J0360; J0696; J1650; J1815; J1940; J1956; J2405; J2930; J7608

== ENCOUNTER 2018-01-02 08:55 | Inpatient (IN) | payer OTHER ==
[~2018-01-02] VITALS: Ht 157.5 cm; Wt 98.5 kg
[~2018-01-02 08:55] MED LIST: AEC81 PO; ALBUTEROL IH; ATOR40TA69 PO; BUDE10.2 IH; CARV25TA PO; CELE200 PO; DILT240C50 PO; DOXA4TAB3 PO; ESCI5TAB10 PO; FLUT16H NASAL; FURO40TA5 PO; GABA-531 PO; GLIM1TAB2 PO; IRON15TA3 PO; LOSA100T29 PO; METF850T2 PO; MULT-1258 PO; OMEG100T PO; OMEP20TA25 PO; ROPI0.5T5 PO; SPIR25TA4 PO; TIOT4MIS5 IH; TRAM50TA4 PO; TYLENOL PM PO; WARF3TAB29 PO; ZOLP5TAB2 PO
[2018-01-02] MEDS ORDERED: IPRATROPIUM/ALBUTEROL SULFATE 3 ML SOLUTION IH ONE (09:21)
[2018-01-02] MEDS ORDERED: METHYLPREDNISOLONE SOD SUCC 125MG/2ML VIAL ONE (09:24)
[2018-01-02 09:36] LABS: BASOPHILS % (AUTO) 0.4 % (0.0-5.0); EOSINOPHILS % (AUTO) 1.1 % (0.0-8.0); HEMATOCRIT 24.8 % (36-48); LYMPHOCYTES % (AUTO) 22.2 % (21.0-51.0); MEAN CORPUSCULAR HGB CONC 33.8 g/dL (32.0-36.0); MEAN CORPUSCULAR VOLUME 82.7 fL (79-99); MONOCYTES % (AUTO) 9.3 % (3.0-13.0); PLATELET COUNT (AUTO) 201 K/uL (130-400); RED CELL DISTRIBUTION WIDTH 18.2 % (11.0-15.5)
[2018-01-02 09:48] LABS: CREATININE 1.2 mg/dL (0.5-1.5); POTASSIUM 4.1 mmol/L (3.5-5.1)
[2018-01-02 09:59] LABS: B-TYPE NATRIURETIC PEPTIDE 302 pg/mL (0-100)
[2018-01-02 10:01] LABS: ALBUMIN 3.1 g/dL (3.5-5.0); BILIRUBIN,TOTAL 0.3 mg/dL (0.2-1.0); CREATINE KINASE MB 0.9 ng/mL (0.5-3.6); TOTAL PROTEIN, SERUM 6.6 g/dL (6.0-8.3)
[2018-01-02] MEDS ORDERED: LEVOFLOXACIN 750 MG/D5W 150 ML 150 ML ONE (11:40)
[2018-01-02] MEDS ORDERED: ACETAMINOPHEN 325 MG TAB PO PRN ×2 (12:15)
[2018-01-02] MEDS ORDERED: ONDANSETRON HCL 4 MG/2 ML VIAL IV PRN (12:15)
[2018-01-02] MEDS ORDERED: LACTULOSE 20 GM/30 ML UDCUP PO PRN (12:15)
[2018-01-02] MEDS ORDERED: MAG HYDROX/AL HYDROX/SIMETH ES 30 ML SUSP UDCUP PO PRN (12:15)
[2018-01-02] MEDS ORDERED: MEROPENEM 500MG+NS 50ML 50 ML IV SCH (12:15)
[2018-01-02] MEDS ORDERED: HYDRALAZINE HCL 20 MG/ML VIAL ONE (12:27)
[2018-01-02 12:48] LABS: INR 2.2 (0.85-1.15); PROTHROMBIN TIME 22.7 SEC (9.6-11.6)
[2018-01-02] MEDS ORDERED: MEROPENEM 500 MG VIAL ONE (13:58)
[2018-01-02 14:50] VITALS: BP 158/67
[2018-01-02] MEDS: IPRATROPIUM/ALBUTEROL SULFATE 3 ML SOLUTION IH SCH ×3 (15:22→21:44)
[2018-01-02 20:00] VITALS: BP 156/63
[2018-01-02] MEDS ORDERED: DEXTROSE 50%-WATER 50 ML DISP.SYRIN IV PRN (22:00)
[2018-01-02] MEDS ORDERED: GLUCAGON 1MG KIT 1 MG ML IM PRN (22:00)
[2018-01-02] MEDS ORDERED: INSULIN HUMULIN R 100 UNIT/ML 3ML ONE (22:03)
[2018-01-02] MEDS: FUROSEMIDE 10 MG/ML 4ML VIAL IVP SCH (22:12)
[2018-01-02] MEDS: MEROPENEM 500 MG VIAL IVP SCH (22:12)
[2018-01-02] MEDS: ZOLPIDEM TARTRATE 5 MG TAB PO PRN (22:12)
[2018-01-02] MEDS: METHYLPREDNISOLONE SOD SUCC 40MG/ML 1ML IVP SCH (22:12)
[2018-01-03] VITALS: BP 152/70
[2018-01-03] MEDS: IPRATROPIUM/ALBUTEROL SULFATE 3 ML SOLUTION IH SCH ×6 (01:33→21:56)
[2018-01-03 04:00] VITALS: BP 152/68
[2018-01-03 04:19] LABS: HEMATOCRIT 25.3 % (36-48); INR 2.54 (0.85-1.15); MEAN CORPUSCULAR HEMOGLOBIN 26.5 pg (27.0-33.0); MEAN CORPUSCULAR HGB CONC 32.4 g/dL (32.0-36.0); MEAN CORPUSCULAR VOLUME 81.9 fL (79-99); PLATELET COUNT (AUTO) 231 K/uL (130-400); PROTHROMBIN TIME 26.2 SEC (9.6-11.6); RED BLOOD CELL COUNT(AUTO) 3.09 MIL/uL (4.00-5.50); RED CELL DISTRIBUTION WIDTH 18.5 % (11.0-15.5); WHITE BLOOD COUNT (AUTO) 5.5 K/uL (4.8-10.8)
[2018-01-03 04:25] LABS: CREATININE 1.3 mg/dL (0.5-1.5); POTASSIUM 4.3 mmol/L (3.5-5.1)
[2018-01-03 04:37] LABS: B-TYPE NATRIURETIC PEPTIDE 818 pg/mL (0-100)
[2018-01-03] MEDS: MEROPENEM 500 MG VIAL IVP SCH ×3 (06:30→21:34)
[2018-01-03] MEDS: INSULIN HUMULIN R 100 UNIT/ML 3ML SQ SCH ×4 (06:37→21:56)
[2018-01-03 07:56] VITALS: BP 192/77
[2018-01-03] MEDS: FISH OIL 1000 MG/CAP PO SCH ×2 (09:05→21:35)
[2018-01-03] MEDS: ASPIRIN 81 MG EC TAB PO SCH (09:06)
[2018-01-03] MEDS: CARVEDILOL 25 MG TABLET PO SCH ×2 (09:06→21:37)
[2018-01-03] MEDS: DILTIAZEM HCL 120 MG CAP.SR.24H PO SCH (09:07)
[2018-01-03] MEDS: GABAPENTIN 300 MG CAPSULE PO SCH (09:07)
[2018-01-03] MEDS: FAMOTIDINE/PF 20 MG/2 ML VIAL IV SCH (09:07)
[2018-01-03] MEDS: METHYLPREDNISOLONE SOD SUCC 40MG/ML 1ML IVP SCH ×2 (09:07→21:34)
[2018-01-03] MEDS: FUROSEMIDE 10 MG/ML 4ML VIAL IVP SCH (09:08)
[2018-01-03] MEDS: FERROUS SULFATE 325 MG TABLET.DR PO SCH (09:14)
[2018-01-03] MEDS: METFORMIN HCL 850 MG TABLET PO SCH ×2 (09:15→16:33)
[2018-01-03] MEDS: GLIMEPIRIDE 2 MG TABLET PO SCH (09:22)
[2018-01-03] MEDS: SPIRONOLACTONE 25 MG TAB PO SCH (09:22)
[2018-01-03 11:50] VITALS: BP 155/66
[2018-01-03] MEDS ORDERED: IPRATROPIUM/ALBUTEROL SULFATE 3 ML SOLUTION IH SCH (12:00)
[2018-01-03] MEDS ORDERED: IPRATROPIUM 0.5 MG/2.5 ML INH IH SCH (12:00)
[2018-01-03] MEDS: BUDESONIDE 0.5 MG/2 ML INH IH SCH ×2 (15:30→18:34)
[2018-01-03 16:00] VITALS: BP 155/55
[2018-01-03] MEDS ORDERED: BUDESONIDE 0.5 MG/2 ML INH IH SCH (18:00)
[2018-01-03 20:00] VITALS: BP 154/63
[2018-01-03] MEDS: ATORVASTATIN CALCIUM 40 MG TABLET PO SCH (21:35)
[2018-01-03] MEDS: ZOLPIDEM TARTRATE 5 MG TAB PO PRN (21:35)
[2018-01-03] MEDS: LOSARTAN 100 MG TABLET PO SCH (21:35)
[2018-01-03] MEDS: DOXAZOSIN MESYLATE 2 MG TABLET PO SCH (21:36)
[2018-01-03] MEDS: ROPINIROLE HCL 1 MG TABLET PO SCH (21:36)
[2018-01-03] MEDS: GUAIFENESIN-DM 200/20 MG 10 ML PO PRN (21:41)
[2018-01-03] MEDS ORDERED: WARFARIN SODIUM 10 MG TABLET ONE (22:41)
[2018-01-04] VITALS: BP 150/52
[2018-01-04] MEDS: IPRATROPIUM/ALBUTEROL SULFATE 3 ML SOLUTION IH SCH ×6 (01:57→21:38)
[2018-01-04 04:00] VITALS: BP 140/52
[2018-01-04 06:02] LABS: CREATININE 1.6 mg/dL (0.5-1.5); INR 1.64 (0.85-1.15); PARTIAL THROMBOPLASTIN TIME 28.7 SEC (26.3-35.5); POTASSIUM 4.4 mmol/L (3.5-5.1); PROTHROMBIN TIME 17.1 SEC (9.6-11.6)
[2018-01-04] MEDS: BUDESONIDE 0.5 MG/2 ML INH IH SCH ×2 (06:25→18:15)
[2018-01-04] MEDS: MEROPENEM 500 MG VIAL IVP SCH (06:29)
[2018-01-04] MEDS: INSULIN HUMULIN R 100 UNIT/ML 3ML SQ SCH ×4 (06:37→22:33)
[2018-01-04 08:00] VITALS: BP 154/60
[2018-01-04] MEDS: FISH OIL 1000 MG/CAP PO SCH ×2 (10:29→22:26)
[2018-01-04] MEDS: FUROSEMIDE 40 MG TABLET PO SCH (10:29)
[2018-01-04] MEDS: METHYLPREDNISOLONE SOD SUCC 40MG/ML 1ML IVP SCH ×2 (10:31→22:26)
[2018-01-04] MEDS: CARVEDILOL 25 MG TABLET PO SCH ×2 (10:31→22:28)
[2018-01-04] MEDS: FAMOTIDINE/PF 20 MG/2 ML VIAL IV SCH (10:31)
[2018-01-04] MEDS: GABAPENTIN 300 MG CAPSULE PO SCH (10:31)
[2018-01-04] MEDS: DILTIAZEM HCL 120 MG CAP.SR.24H PO SCH (10:32)
[2018-01-04] MEDS: ASPIRIN 81 MG EC TAB PO SCH (10:33)
[2018-01-04] MEDS: FERROUS SULFATE 325 MG TABLET.DR PO SCH (10:49)
[2018-01-04] MEDS: SPIRONOLACTONE 25 MG TAB PO SCH (10:49)
[2018-01-04] MEDS: GLIMEPIRIDE 2 MG TABLET PO SCH (10:49)
[2018-01-04 11:00] VITALS: BP 162/69
[2018-01-04] MEDS: DOXYCYCLINE 100MG+NS 250ML 250 ML IV SCH ×2 (12:03→22:24)
[2018-01-04 16:00] VITALS: BP 147/63
[2018-01-04] MEDS: WARFARIN SODIUM 2 MG TAB PO SCH (16:25)
[2018-01-04] MEDS: INSULIN NPH 100 UNIT/ML 3ML SQ SCH (16:37)
[2018-01-04 20:00] VITALS: BP 166/60
[2018-01-04] MEDS: LOSARTAN 100 MG TABLET PO SCH (22:26)
[2018-01-04] MEDS: ATORVASTATIN CALCIUM 40 MG TABLET PO SCH (22:26)
[2018-01-04] MEDS: ROPINIROLE HCL 1 MG TABLET PO SCH (22:26)
[2018-01-04] MEDS: DOXAZOSIN MESYLATE 2 MG TABLET PO SCH (22:27)
[2018-01-04] MEDS: ZOLPIDEM TARTRATE 5 MG TAB PO PRN (22:28)
[2018-01-04] MEDS: GUAIFENESIN-DM 200/20 MG 10 ML PO PRN (22:33)
[2018-01-05] VITALS (7 sets, daily range): BP systolic 142–168; BP diastolic 54–78
[2018-01-05] MEDS: IPRATROPIUM/ALBUTEROL SULFATE 3 ML SOLUTION IH SCH ×6 (01:45→22:35)
[2018-01-05] MEDS: INSULIN HUMULIN R 100 UNIT/ML 3ML SQ SCH ×4 (06:06→22:13)
[2018-01-05] MEDS: BUDESONIDE 0.5 MG/2 ML INH IH SCH ×2 (06:25→18:50)
[2018-01-05] MEDS: INSULIN NPH 100 UNIT/ML 3ML SQ SCH ×2 (06:51→17:00)
[2018-01-05 07:16] LABS: INR 2.04 (0.85-1.15); PARTIAL THROMBOPLASTIN TIME 27.9 SEC (26.3-35.5); PROTHROMBIN TIME 21.1 SEC (9.6-11.6)
[2018-01-05 09:05] LABS: CREATININE 1.3 mg/dL (0.5-1.5); POTASSIUM 4.2 mmol/L (3.5-5.1)
[2018-01-05] MEDS: GABAPENTIN 300 MG CAPSULE PO SCH (10:58)
[2018-01-05] MEDS: FAMOTIDINE/PF 20 MG/2 ML VIAL IV SCH (10:58)
[2018-01-05] MEDS: DILTIAZEM HCL 120 MG CAP.SR.24H PO SCH (10:58)
[2018-01-05] MEDS: METHYLPREDNISOLONE SOD SUCC 40MG/ML 1ML IVP SCH ×2 (10:58→22:14)
[2018-01-05] MEDS: FISH OIL 1000 MG/CAP PO SCH ×2 (10:59→22:05)
[2018-01-05] MEDS: GLIMEPIRIDE 2 MG TABLET PO SCH (10:59)
[2018-01-05] MEDS: FUROSEMIDE 40 MG TABLET PO SCH (10:59)
[2018-01-05] MEDS: ASPIRIN 81 MG EC TAB PO SCH (11:00)
[2018-01-05] MEDS: FERROUS SULFATE 325 MG TABLET.DR PO SCH (11:00)
[2018-01-05] MEDS: CARVEDILOL 25 MG TABLET PO SCH ×2 (11:01→22:06)
[2018-01-05] MEDS: SPIRONOLACTONE 25 MG TAB PO SCH (11:01)
[2018-01-05] MEDS: DOXYCYCLINE 100MG+NS 250ML 250 ML IV SCH ×2 (12:24→22:16)
[2018-01-05] MEDS: ACETYLCYSTEINE 20% 200MG/ML 4ML VIAL IH SCH ×2 (14:14→22:36)
[2018-01-05] MEDS ORDERED: WARFARIN SODIUM 2 MG TAB PO SCH (16:00)
[2018-01-05] MEDS: LOSARTAN 100 MG TABLET PO SCH (22:05)
[2018-01-05] MEDS: ROPINIROLE HCL 1 MG TABLET PO SCH (22:05)
[2018-01-05] MEDS: ATORVASTATIN CALCIUM 40 MG TABLET PO SCH (22:05)
[2018-01-05] MEDS: DOXAZOSIN MESYLATE 2 MG TABLET PO SCH (22:05)
[2018-01-05] MEDS: ZOLPIDEM TARTRATE 5 MG TAB PO PRN (22:16)
[2018-01-06] MEDS: IPRATROPIUM/ALBUTEROL SULFATE 3 ML SOLUTION IH SCH ×6 (02:34→22:25)
[2018-01-06 03:31] VITALS: BP 145/64
[2018-01-06 03:54] LABS: CREATININE 1.3 mg/dL (0.5-1.5)
[2018-01-06] MEDS: INSULIN NPH 100 UNIT/ML 3ML SQ SCH ×2 (06:14→17:24)
[2018-01-06] MEDS: INSULIN HUMULIN R 100 UNIT/ML 3ML SQ SCH ×4 (06:51→21:29)
[2018-01-06 07:00] VITALS: BP 171/57
[2018-01-06] MEDS: ACETYLCYSTEINE 20% 200MG/ML 4ML VIAL IH SCH ×3 (07:05→22:25)
[2018-01-06] MEDS: BUDESONIDE 0.5 MG/2 ML INH IH SCH ×2 (07:26→18:58)
[2018-01-06] MEDS: DOXYCYCLINE 100MG+NS 250ML 250 ML IV SCH ×2 (09:45→23:17)
[2018-01-06] MEDS ORDERED: DOXYCYCLINE 100MG+NS 250ML 250 ML IV SCH (10:50)
[2018-01-06 11:00] VITALS: BP 193/78
[2018-01-06] MEDS: FERROUS SULFATE 325 MG TABLET.DR PO SCH (11:11)
[2018-01-06] MEDS: GLIMEPIRIDE 2 MG TABLET PO SCH (11:13)
[2018-01-06] MEDS: METHYLPREDNISOLONE SOD SUCC 40MG/ML 1ML IVP SCH ×2 (11:13→21:34)
[2018-01-06] MEDS: FAMOTIDINE/PF 20 MG/2 ML VIAL IV SCH (11:13)
[2018-01-06] MEDS: SPIRONOLACTONE 25 MG TAB PO SCH (11:13)
[2018-01-06] MEDS: DILTIAZEM HCL 120 MG CAP.SR.24H PO SCH (11:14)
[2018-01-06] MEDS: ASPIRIN 81 MG EC TAB PO SCH (11:14)
[2018-01-06] MEDS: FISH OIL 1000 MG/CAP PO SCH ×2 (11:15→21:34)
[2018-01-06] MEDS: FUROSEMIDE 40 MG TABLET PO SCH (11:15)
[2018-01-06] MEDS: CARVEDILOL 25 MG TABLET PO SCH ×2 (11:15→21:35)
[2018-01-06] MEDS: GABAPENTIN 300 MG CAPSULE PO SCH (11:15)
[2018-01-06] MEDS: WARFARIN SODIUM 2 MG TAB PO SCH (17:11)
[2018-01-06 17:18] VITALS: BP 184/71
[2018-01-06 20:00] VITALS: BP 168/80
[2018-01-06] MEDS: ROPINIROLE HCL 1 MG TABLET PO SCH (21:34)
[2018-01-06] MEDS: ATORVASTATIN CALCIUM 40 MG TABLET PO SCH (21:34)
[2018-01-06] MEDS: LOSARTAN 100 MG TABLET PO SCH (21:35)
[2018-01-06] MEDS: DOXAZOSIN MESYLATE 2 MG TABLET PO SCH (21:35)
[2018-01-06] MEDS: ZOLPIDEM TARTRATE 5 MG TAB PO PRN (23:16)
[2018-01-07] VITALS: BP 164/64
[2018-01-07] MEDS: IPRATROPIUM/ALBUTEROL SULFATE 3 ML SOLUTION IH SCH ×6 (02:19→22:00)
[2018-01-07 04:00] VITALS: BP 142/58
[2018-01-07 04:45] LABS: HEMATOCRIT 27.1 % (36-48); MEAN CORPUSCULAR HEMOGLOBIN 26.7 pg (27.0-33.0); MEAN CORPUSCULAR VOLUME 80.8 fL (79-99); NUCLEATED RED BLOOD CELLS 0.1 % (0.0-0.19); PLATELET COUNT (AUTO) 258 K/uL (130-400); RED BLOOD CELL COUNT(AUTO) 3.36 MIL/uL (4.00-5.50); RED CELL DISTRIBUTION WIDTH 18.2 % (11.0-15.5); WHITE BLOOD COUNT (AUTO) 9.3 K/uL (4.8-10.8)
[2018-01-07 04:51] LABS: CREATININE 1.1 mg/dL (0.5-1.5); POTASSIUM 3.8 mmol/L (3.5-5.1)
[2018-01-07 04:53] LABS: INR 2.93 (0.85-1.15); PARTIAL THROMBOPLASTIN TIME 28.2 SEC (26.3-35.5); PROTHROMBIN TIME 30.1 SEC (9.6-11.6)
[2018-01-07] MEDS: ACETYLCYSTEINE 20% 200MG/ML 4ML VIAL IH SCH ×4 (06:16→22:01)
[2018-01-07] MEDS: BUDESONIDE 0.5 MG/2 ML INH IH SCH ×2 (06:17→18:45)
[2018-01-07] MEDS: INSULIN HUMULIN R 100 UNIT/ML 3ML SQ SCH ×4 (06:54→21:29)
[2018-01-07 07:00] VITALS: BP_SYST 133; BP_SYST 183; BP_DIAS 67; BP_DIAS 83
[2018-01-07] MEDS: INSULIN NPH 100 UNIT/ML 3ML SQ SCH ×2 (07:17→16:10)
[2018-01-07] MEDS: GABAPENTIN 300 MG CAPSULE PO SCH (09:47)
[2018-01-07] MEDS: FAMOTIDINE/PF 20 MG/2 ML VIAL IV SCH (09:47)
[2018-01-07] MEDS: FISH OIL 1000 MG/CAP PO SCH ×2 (09:47→21:38)
[2018-01-07] MEDS: METHYLPREDNISOLONE SOD SUCC 40MG/ML 1ML IVP SCH ×2 (09:47→21:38)
[2018-01-07] MEDS: SPIRONOLACTONE 25 MG TAB PO SCH (09:47)
[2018-01-07] MEDS: FUROSEMIDE 40 MG TABLET PO SCH (09:48)
[2018-01-07] MEDS: ASPIRIN 81 MG EC TAB PO SCH (09:48)
[2018-01-07] MEDS: CARVEDILOL 25 MG TABLET PO SCH ×2 (09:48→21:39)
[2018-01-07] MEDS: DILTIAZEM HCL 120 MG CAP.SR.24H PO SCH (09:49)
[2018-01-07] MEDS: DOXYCYCLINE 100MG+NS 250ML 250 ML IV SCH ×2 (09:49→21:31)
[2018-01-07] MEDS: FERROUS SULFATE 325 MG TABLET.DR PO SCH (09:59)
[2018-01-07] MEDS: GLIMEPIRIDE 2 MG TABLET PO SCH (10:17)
[2018-01-07 11:00] VITALS: BP 206/81
[2018-01-07 16:00] VITALS: BP 201/80
[2018-01-07] MEDS: WARFARIN SODIUM 2 MG TAB PO SCH (16:05)
[2018-01-07 20:00] VITALS: BP 189/82
[2018-01-07] MEDS: LOSARTAN 100 MG TABLET PO SCH (21:38)
[2018-01-07] MEDS: DOXAZOSIN MESYLATE 2 MG TABLET PO SCH (21:38)
[2018-01-07] MEDS: ATORVASTATIN CALCIUM 40 MG TABLET PO SCH (21:38)
[2018-01-07] MEDS: ROPINIROLE HCL 1 MG TABLET PO SCH (21:38)
[2018-01-07] MEDS: ZOLPIDEM TARTRATE 5 MG TAB PO PRN (22:40)
[2018-01-08] VITALS: BP 184/66
[2018-01-08] MEDS: IPRATROPIUM/ALBUTEROL SULFATE 3 ML SOLUTION IH SCH ×5 (02:01→23:17)
[2018-01-08 04:00] VITALS: BP 186/66
[2018-01-08 04:26] LABS: HEMATOCRIT 28.3 % (36-48); MEAN CORPUSCULAR HEMOGLOBIN 26.9 pg (27.0-33.0); MEAN CORPUSCULAR HGB CONC 33.3 g/dL (32.0-36.0); MEAN CORPUSCULAR VOLUME 80.7 fL (79-99); PLATELET COUNT (AUTO) 267 K/uL (130-400); RED BLOOD CELL COUNT(AUTO) 3.51 MIL/uL (4.00-5.50); RED CELL DISTRIBUTION WIDTH 18.2 % (11.0-15.5); WHITE BLOOD COUNT (AUTO) 10.4 K/uL (4.8-10.8)
[2018-01-08 04:37] LABS: CREATININE 1.1 mg/dL (0.5-1.5); POTASSIUM 3.7 mmol/L (3.5-5.1)
[2018-01-08 05:41] LABS: INR 3.33 (0.85-1.15); PARTIAL THROMBOPLASTIN TIME 28.4 SEC (26.3-35.5); PROTHROMBIN TIME 34.2 SEC (9.6-11.6)
[2018-01-08] MEDS: INSULIN HUMULIN R 100 UNIT/ML 3ML SQ SCH ×4 (06:30→21:07)
[2018-01-08] MEDS: BUDESONIDE 0.5 MG/2 ML INH IH SCH ×2 (06:32→19:12)
[2018-01-08 07:00] VITALS: BP 201/78
[2018-01-08] MEDS: FERROUS SULFATE 325 MG TABLET.DR PO SCH (07:31)
[2018-01-08] MEDS: GLIMEPIRIDE 2 MG TABLET PO SCH (07:32)
[2018-01-08] MEDS: INSULIN NPH 100 UNIT/ML 3ML SQ SCH ×2 (07:48→18:19)
[2018-01-08] MEDS: DOXYCYCLINE 100MG+NS 250ML 250 ML IV SCH ×2 (08:48→21:14)
[2018-01-08] MEDS: GABAPENTIN 300 MG CAPSULE PO SCH (08:49)
[2018-01-08] MEDS: DILTIAZEM HCL 120 MG CAP.SR.24H PO SCH (08:49)
[2018-01-08] MEDS: SPIRONOLACTONE 25 MG TAB PO SCH (08:50)
[2018-01-08] MEDS: CARVEDILOL 25 MG TABLET PO SCH ×2 (08:50→21:13)
[2018-01-08] MEDS: FISH OIL 1000 MG/CAP PO SCH ×2 (08:50→21:13)
[2018-01-08] MEDS: ASPIRIN 81 MG EC TAB PO SCH (08:50)
[2018-01-08] MEDS: METHYLPREDNISOLONE SOD SUCC 40MG/ML 1ML IVP SCH ×2 (08:50→21:12)
[2018-01-08] MEDS: FUROSEMIDE 40 MG TABLET PO SCH (08:50)
[2018-01-08] MEDS ORDERED: HYDRALAZINE HCL 20 MG/ML VIAL IV PRN (09:00)
[2018-01-08 11:00] VITALS: BP 205/74
[2018-01-08] MEDS ORDERED: ACETYLCYSTEINE 20% 200MG/ML 4ML VIAL ONE (11:06)
[2018-01-08] MEDS: FAMOTIDINE/PF 20 MG/2 ML VIAL IV SCH (14:09)
[2018-01-08] MEDS: WARFARIN SODIUM 2 MG TAB PO SCH (15:38)
[2018-01-08 16:00] VITALS: BP 151/52
[2018-01-08] MEDS: ACETYLCYSTEINE 20% 200MG/ML 4ML VIAL IH SCH ×2 (18:07→23:17)
[2018-01-08 20:00] VITALS: BP 176/64
[2018-01-08] MEDS: ATORVASTATIN CALCIUM 40 MG TABLET PO SCH (21:12)
[2018-01-08] MEDS: LOSARTAN 100 MG TABLET PO SCH (21:12)
[2018-01-08] MEDS: DOXAZOSIN MESYLATE 2 MG TABLET PO SCH (21:12)
[2018-01-08] MEDS: ROPINIROLE HCL 1 MG TABLET PO SCH (21:13)
[2018-01-08] MEDS: ZOLPIDEM TARTRATE 5 MG TAB PO PRN (23:31)
[2018-01-09] VITALS (9 sets, daily range): BP systolic 135–191; BP diastolic 47–88
[2018-01-09 04:02] LABS: CREATININE 1.1 mg/dL (0.5-1.5); POTASSIUM 3.6 mmol/L (3.5-5.1)
[2018-01-09 04:10] LABS: INR 3.94 (0.85-1.15); PROTHROMBIN TIME 40.3 SEC (9.6-11.6)
[2018-01-09] MEDS: INSULIN HUMULIN R 100 UNIT/ML 3ML SQ SCH ×4 (06:29→21:04)
[2018-01-09] MEDS: INSULIN NPH 100 UNIT/ML 3ML SQ SCH ×2 (06:40→16:49)
[2018-01-09] MEDS: ACETYLCYSTEINE 20% 200MG/ML 4ML VIAL IH SCH ×3 (07:11→23:21)
[2018-01-09] MEDS: IPRATROPIUM/ALBUTEROL SULFATE 3 ML SOLUTION IH SCH ×4 (07:11→23:21)
[2018-01-09] MEDS: BUDESONIDE 0.5 MG/2 ML INH IH SCH ×2 (07:12→18:56)
[2018-01-09] MEDS: GLIMEPIRIDE 2 MG TABLET PO SCH (10:41)
[2018-01-09] MEDS: FUROSEMIDE 40 MG TABLET PO SCH (10:41)
[2018-01-09] MEDS: FISH OIL 1000 MG/CAP PO SCH ×2 (10:41→20:54)
[2018-01-09] MEDS: DILTIAZEM HCL 120 MG CAP.SR.24H PO SCH (10:41)
[2018-01-09] MEDS: CARVEDILOL 25 MG TABLET PO SCH ×2 (10:42→20:55)
[2018-01-09] MEDS: METHYLPREDNISOLONE SOD SUCC 40MG/ML 1ML IVP SCH ×2 (10:42→20:55)
[2018-01-09] MEDS: GABAPENTIN 300 MG CAPSULE PO SCH (10:42)
[2018-01-09] MEDS: FAMOTIDINE/PF 20 MG/2 ML VIAL IV SCH (10:42)
[2018-01-09] MEDS: ASPIRIN 81 MG EC TAB PO SCH (10:42)
[2018-01-09] MEDS: SPIRONOLACTONE 25 MG TAB PO SCH (10:43)
[2018-01-09] MEDS: DOXYCYCLINE 100MG+NS 250ML 250 ML IV SCH ×2 (10:43→21:53)
[2018-01-09] MEDS: FERROUS SULFATE 325 MG TABLET.DR PO SCH (10:54)
[2018-01-09] MEDS ORDERED: ACETYLCYSTEINE 20% 200MG/ML 4ML VIAL ONE (11:32)
[2018-01-09] MEDS: WARFARIN SODIUM 2 MG TAB PO SCH (15:59)
[2018-01-09] MEDS ORDERED: INSULIN HUMULIN R 100 UNIT/ML 3ML SQ SCH (20:30)
[2018-01-09] MEDS: ROPINIROLE HCL 1 MG TABLET PO SCH (20:54)
[2018-01-09] MEDS: ATORVASTATIN CALCIUM 40 MG TABLET PO SCH (20:54)
[2018-01-09] MEDS: LOSARTAN 100 MG TABLET PO SCH (20:54)
[2018-01-09] MEDS: DOXAZOSIN MESYLATE 2 MG TABLET PO SCH (20:54)
[2018-01-09] MEDS: ZOLPIDEM TARTRATE 5 MG TAB PO PRN (21:04)
[2018-01-10] VITALS (7 sets, daily range): BP systolic 140–201; BP diastolic 53–96
[2018-01-10 04:11] LABS: INR 2.65 (0.85-1.15); PARTIAL THROMBOPLASTIN TIME 28.1 SEC (26.3-35.5); PROTHROMBIN TIME 27.3 SEC (9.6-11.6)
[2018-01-10 04:17] LABS: CREATININE 1.1 mg/dL (0.5-1.5); POTASSIUM 3.7 mmol/L (3.5-5.1)
[2018-01-10] MEDS: INSULIN HUMULIN R 100 UNIT/ML 3ML SQ SCH ×4 (05:46→20:38)
[2018-01-10] MEDS: ACETYLCYSTEINE 20% 200MG/ML 4ML VIAL IH SCH ×3 (06:00→23:37)
[2018-01-10] MEDS: BUDESONIDE 0.5 MG/2 ML INH IH SCH ×2 (06:52→19:13)
[2018-01-10] MEDS: IPRATROPIUM/ALBUTEROL SULFATE 3 ML SOLUTION IH SCH ×4 (06:52→23:36)
[2018-01-10] MEDS: INSULIN NPH 100 UNIT/ML 3ML SQ SCH ×2 (07:30→16:05)
[2018-01-10] MEDS: FERROUS SULFATE 325 MG TABLET.DR PO SCH (08:11)
[2018-01-10] MEDS: DILTIAZEM HCL 120 MG CAP.SR.24H PO SCH (08:11)
[2018-01-10] MEDS: ASPIRIN 81 MG EC TAB PO SCH (08:11)
[2018-01-10] MEDS: FISH OIL 1000 MG/CAP PO SCH ×2 (08:11→20:28)
[2018-01-10] MEDS: GABAPENTIN 300 MG CAPSULE PO SCH (08:11)
[2018-01-10] MEDS: GLIMEPIRIDE 2 MG TABLET PO SCH (08:12)
[2018-01-10] MEDS: CARVEDILOL 25 MG TABLET PO SCH ×2 (08:12→20:29)
[2018-01-10] MEDS: SPIRONOLACTONE 25 MG TAB PO SCH (08:12)
[2018-01-10] MEDS: FUROSEMIDE 40 MG TABLET PO SCH (08:12)
[2018-01-10] MEDS: FAMOTIDINE/PF 20 MG/2 ML VIAL IV SCH (08:12)
[2018-01-10] MEDS: METHYLPREDNISOLONE SOD SUCC 40MG/ML 1ML IVP SCH ×2 (11:59→20:30)
[2018-01-10] MEDS: DOXYCYCLINE 100MG+NS 250ML 250 ML IV SCH ×2 (11:59→21:48)
[2018-01-10] MEDS: WARFARIN SODIUM 2 MG TAB PO SCH (16:09)
[2018-01-10] MEDS: ZOLPIDEM TARTRATE 5 MG TAB PO PRN (20:28)
[2018-01-10] MEDS: DOXAZOSIN MESYLATE 2 MG TABLET PO SCH (20:28)
[2018-01-10] MEDS: ATORVASTATIN CALCIUM 40 MG TABLET PO SCH (20:28)
[2018-01-10] MEDS: LOSARTAN 100 MG TABLET PO SCH (20:29)
[2018-01-10] MEDS: ROPINIROLE HCL 1 MG TABLET PO SCH (20:29)
[2018-01-10] MEDS ORDERED: ACETYLCYSTEINE 20% 200MG/ML 4ML VIAL ONE (23:14)
[2018-01-11 03:00] VITALS: BP 150/59
[2018-01-11] MEDS: IPRATROPIUM/ALBUTEROL SULFATE 3 ML SOLUTION IH SCH ×4 (04:51→23:32)
[2018-01-11] MEDS: BUDESONIDE 0.5 MG/2 ML INH IH SCH ×2 (05:20→18:59)
[2018-01-11] MEDS: INSULIN NPH 100 UNIT/ML 3ML SQ SCH ×2 (06:26→15:58)
[2018-01-11 06:34] LABS: INR 2.23 (0.85-1.15); PARTIAL THROMBOPLASTIN TIME 26.1 SEC (26.3-35.5)
[2018-01-11 06:40] LABS: CREATININE 1.1 mg/dL (0.5-1.5)
[2018-01-11] MEDS: INSULIN HUMULIN R 100 UNIT/ML 3ML SQ SCH ×4 (07:30→21:22)
[2018-01-11] MEDS: DOXYCYCLINE 100MG+NS 250ML 250 ML IV SCH ×2 (07:36→21:25)
[2018-01-11] MEDS: FISH OIL 1000 MG/CAP PO SCH ×2 (07:37→20:16)
[2018-01-11] MEDS: GABAPENTIN 300 MG CAPSULE PO SCH (07:37)
[2018-01-11] MEDS: METHYLPREDNISOLONE SOD SUCC 40MG/ML 1ML IVP SCH ×2 (07:37→20:15)
[2018-01-11] MEDS: FAMOTIDINE/PF 20 MG/2 ML VIAL IV SCH (07:37)
[2018-01-11] MEDS: CARVEDILOL 25 MG TABLET PO SCH ×2 (07:39→20:16)
[2018-01-11] MEDS: GLIMEPIRIDE 2 MG TABLET PO SCH (07:40)
[2018-01-11] MEDS: SPIRONOLACTONE 25 MG TAB PO SCH (07:40)
[2018-01-11] MEDS: FUROSEMIDE 40 MG TABLET PO SCH (07:40)
[2018-01-11] MEDS: DILTIAZEM HCL 120 MG CAP.SR.24H PO SCH (07:40)
[2018-01-11] MEDS: FERROUS SULFATE 325 MG TABLET.DR PO SCH (07:40)
[2018-01-11 07:54] VITALS: BP 188/64
[2018-01-11] MEDS: GUAIFENESIN-DM 200/20 MG 10 ML PO PRN (08:03)
[2018-01-11] MEDS: ASPIRIN 81 MG EC TAB PO SCH (08:03)
[2018-01-11] MEDS ORDERED: ACETAMINOPHEN-CODEINE 300/30MG TAB PO PRN (08:15)
[2018-01-11] MEDS ORDERED: ACETYLCYSTEINE 20% 200MG/ML 4ML VIAL IH SCH (09:00)
[2018-01-11 11:34] VITALS: BP 150/62
[2018-01-11 15:51] VITALS: BP 153/68
[2018-01-11] MEDS: WARFARIN SODIUM 2 MG TAB PO SCH (15:57)
[2018-01-11 19:00] VITALS: BP 164/63
[2018-01-11] MEDS: LOSARTAN 100 MG TABLET PO SCH (20:16)
[2018-01-11] MEDS: ZOLPIDEM TARTRATE 5 MG TAB PO PRN (20:16)
[2018-01-11] MEDS: ROPINIROLE HCL 1 MG TABLET PO SCH (20:16)
[2018-01-11] MEDS: ATORVASTATIN CALCIUM 40 MG TABLET PO SCH (20:16)
[2018-01-11] MEDS: DOXAZOSIN MESYLATE 2 MG TABLET PO SCH (20:17)
[2018-01-11 23:00] VITALS: BP 162/51
[2018-01-12 03:00] VITALS: BP 127/46
[2018-01-12] MEDS: INSULIN HUMULIN R 100 UNIT/ML 3ML SQ SCH ×2 (05:56→12:46)
[2018-01-12] MEDS: BUDESONIDE 0.5 MG/2 ML INH IH SCH (06:36)
[2018-01-12] MEDS: IPRATROPIUM/ALBUTEROL SULFATE 3 ML SOLUTION IH SCH ×2 (06:36→11:14)
[2018-01-12 08:00] VITALS: BP 190/89
[2018-01-12] MEDS: DILTIAZEM HCL 120 MG CAP.SR.24H PO SCH (08:15)
[2018-01-12] MEDS: ASPIRIN 81 MG EC TAB PO SCH (08:15)
[2018-01-12] MEDS: GABAPENTIN 300 MG CAPSULE PO SCH (08:15)
[2018-01-12] MEDS: FISH OIL 1000 MG/CAP PO SCH (08:15)
[2018-01-12] MEDS: CARVEDILOL 25 MG TABLET PO SCH (08:16)
[2018-01-12] MEDS: SPIRONOLACTONE 25 MG TAB PO SCH (08:16)
[2018-01-12] MEDS: FUROSEMIDE 40 MG TABLET PO SCH (08:16)
[2018-01-12] MEDS: GLIMEPIRIDE 2 MG TABLET PO SCH (08:17)
[2018-01-12] MEDS: FAMOTIDINE/PF 20 MG/2 ML VIAL IV SCH (08:17)
[2018-01-12] MEDS: METHYLPREDNISOLONE SOD SUCC 40MG/ML 1ML IVP SCH (08:18)
[2018-01-12] MEDS: FERROUS SULFATE 325 MG TABLET.DR PO SCH (08:19)
[2018-01-12] MEDS: INSULIN NPH 100 UNIT/ML 3ML SQ SCH (08:29)
[2018-01-12] MEDS: DOXYCYCLINE 100MG+NS 250ML 250 ML IV SCH (09:40)
[2018-01-12 11:00] VITALS: BP 159/69
[2018-01-12] MEDS ORDERED: INSULIN HUMULIN R 100 UNIT/ML 3ML SQ ONE (12:35)
== END 2018-01-12 14:30 | disposition home or self-care (01) | DRG 291 ==
LOC: EDH 08:55 → EDHIP 12:09 → 3BH 14:08
PROVIDERS: ADMIT Family Medicine; ATTEND Family Medicine
DX: I11.0 Hypertensive heart disease with heart failure (principal); J96.20 Acute and chronic respiratory failure, unspecified whether with hypoxia or hypercapnia; E11.42 Type 2 diabetes mellitus with diabetic polyneuropathy; J44.0 Chronic obstructive pulmonary disease with (acute) lower respiratory infection; J44.1 Chronic obstructive pulmonary disease with (acute) exacerbation; I50.33 Acute on chronic diastolic (congestive) heart failure; E78.5 Hyperlipidemia, unspecified; I25.10 Atherosclerotic heart disease of native coronary artery without angina pectoris; Z95.1 Presence of aortocoronary bypass graft; Z95.2 Presence of prosthetic heart valve; J20.9 Acute bronchitis, unspecified; Z79.01 Long term (current) use of anticoagulants; Z99.81 Dependence on supplemental oxygen; Z87.01 Personal history of pneumonia (recurrent); Z82.49 Family history of ischemic heart disease and other diseases of the circulatory system
CPT/HCPCS: 36415; 71045; 71250; 80048; 80053; 82550; 82553; 82947; 82948; 83605; 83880; 84484; 85025; 85027; 85610; 85730; 87040; 87804; 93005; 94640; 94664; 94667; A4218; J0360; J1815; J1940; J1956; J2185; J2920; J2930; J3490; J7608

== ENCOUNTER 2018-01-13 11:00 | Observation (INO) | payer OTHER ==
[~2018-01-13] VITALS: Ht 157.5 cm; Wt 98.0 kg
[2018-01-13] MEDS ORDERED: METHYLPREDNISOLONE SOD SUCC 125MG/2ML VIAL ONE (11:48)
[2018-01-13] MEDS ORDERED: IPRATROPIUM/ALBUTEROL SULFATE 3 ML SOLUTION IH ONE (12:02)
[2018-01-13 12:24] LABS: EOSINOPHILS % (AUTO) 0.3 % (0.0-8.0); HEMATOCRIT 32.7 % (36-48); LYMPHOCYTES % (AUTO) 12.5 % (21.0-51.0); MEAN CORPUSCULAR HEMOGLOBIN 26.9 pg (27.0-33.0); MEAN CORPUSCULAR HGB CONC 32.3 g/dL (32.0-36.0); MEAN CORPUSCULAR VOLUME 83.4 fL (79-99); MONOCYTES % (AUTO) 8.5 % (3.0-13.0); NEUTROPHILS % (AUTO) 78.7 % (40.0-77.0); NUCLEATED RED BLOOD CELLS 0.1 % (0.0-0.19); PLATELET COUNT (AUTO) 237 K/uL (130-400); RED BLOOD CELL COUNT(AUTO) 3.92 MIL/uL (4.00-5.50); RED CELL DISTRIBUTION WIDTH 18.5 % (11.0-15.5); WHITE BLOOD COUNT (AUTO) 16.8 K/uL (4.8-10.8)
[2018-01-13 12:42] LABS: INR 2.46 (0.85-1.15); PARTIAL THROMBOPLASTIN TIME 26.5 SEC (26.3-35.5); PROTHROMBIN TIME 25.4 SEC (9.6-11.6)
[2018-01-13 12:56] LABS: B-TYPE NATRIURETIC PEPTIDE 525 pg/mL (0-100)
[2018-01-13 14:13] LABS: APPEARANCE,URINE Clear (CLEAR); BILIRUBIN,URINE Negative (NEGATIVE); COLOR,URINE Yellow (YELLOW); GLUCOSE, URINE (UA) Negative (NEGATIVE); KETONES,URINE Negative (NEGATIVE); LEUKOCYTE ESTERASE ,URINE Negative (NEGATIVE); NITRATE,URINE Negative (NEGATIVE); OCCULT BLOOD,URINE Negative (NEGATIVE); PROTEIN,URINE Negative (NEGATIVE); UROBILINOGEN,URINE 0.2 mg/dL (0.2-1.0)
[2018-01-13] MEDS ORDERED: ASPIRIN 325 MG TABLET ONE (14:22)
[2018-01-13] MEDS ORDERED: POTASSIUM CHLORIDE 10% ELIXIR 20 MEQ/15 ML UDCUP PO PRN (14:30)
[2018-01-13] MEDS ORDERED: POTASSIUM CHLORIDE 20 MEQ ERTAB PO PRN (14:30)
[2018-01-13] MEDS ORDERED: LIDOCAINE HCL-MPF 1% 2ML VIAL IVP PRN (14:30)
[2018-01-13] MEDS ORDERED: NITROGLYCERIN 0.4 MG SL TAB SL PRN (14:30)
[2018-01-13] MEDS ORDERED: LACTULOSE 20 GM/30 ML UDCUP PO PRN (14:30)
[2018-01-13] MEDS ORDERED: ACETAMINOPHEN 325 MG TAB PO PRN ×2 (14:30)
[2018-01-13] MEDS ORDERED: MAG HYDROX/AL HYDROX/SIMETH ES 30 ML SUSP UDCUP PO PRN (14:30)
[2018-01-13] MEDS ORDERED: ONDANSETRON HCL 4 MG/2 ML VIAL IV PRN (14:30)
[2018-01-13] MEDS ORDERED: GUAIFENESIN-DM 200/20 MG 10 ML PO PRN (14:30)
[2018-01-13] MEDS ORDERED: ACETAMINOPHEN-CODEINE 300/30MG TAB PO PRN ×2 (14:30)
[2018-01-13] MEDS ORDERED: POTASSIUM CHLORIDE 20MEQ/100ML 100 ML IV PRN (14:30)
[2018-01-13] MEDS ORDERED: WARFARIN SODIUM 5 MG TAB PO SCH (16:28)
[2018-01-13] MEDS ORDERED: WARFARIN SODIUM 2 MG TAB PO SCH (16:30)
[2018-01-13 16:37] LABS: CREATININE 1.4 mg/dL (0.5-1.5); POTASSIUM 4.1 mmol/L (3.5-5.1)
[2018-01-13 17:15] VITALS: BP 146/55
[2018-01-13] MEDS ORDERED: IPRATROPIUM 0.5 MG/2.5 ML INH IH SCH (18:00)
[2018-01-13] MEDS: IPRATROPIUM/ALBUTEROL SULFATE 3 ML SOLUTION IH SCH (18:00)
[2018-01-13 18:36] LABS: CREATINE KINASE MB 3.5 ng/mL (0.5-3.6); TROPONIN I 0.07 ng/mL (0.00-0.06)
[2018-01-13] MEDS: INSULIN HUMULIN R 100 UNIT/ML 3ML SQ SCH ×2 (18:39→21:40)
[2018-01-13 19:00] VITALS: BP 114/54
[2018-01-13] MEDS: BUDESONIDE 0.5 MG/2 ML INH IH SCH (19:25)
[2018-01-13] MEDS ORDERED: CARVEDILOL 25 MG TABLET PO SCH (21:00)
[2018-01-13] MEDS ORDERED: LOSARTAN 100 MG TABLET PO SCH (21:00)
[2018-01-13] MEDS ORDERED: FAMOTIDINE/PF 20 MG/2 ML VIAL IV SCH (21:00)
[2018-01-13] MEDS: ZOLPIDEM TARTRATE 5 MG TAB PO PRN (21:28)
[2018-01-13] MEDS: DOXAZOSIN MESYLATE 2 MG TABLET PO SCH (21:30)
[2018-01-13] MEDS: BENZONATATE 100 MG CAPSULE PO SCH (21:30)
[2018-01-13] MEDS: ATORVASTATIN CALCIUM 40 MG TABLET PO SCH (21:31)
[2018-01-13] MEDS: ROPINIROLE HCL 1 MG TABLET PO SCH (21:33)
[2018-01-13] MEDS: DOXYCYCLINE HYCLATE 100 MG TABLET PO SCH (21:38)
[2018-01-14] VITALS (7 sets, daily range): BP systolic 95–148; BP diastolic 44–71
[2018-01-14 01:59] LABS: HEMATOCRIT 30.3 % (36-48); MEAN CORPUSCULAR HEMOGLOBIN 26.7 pg (27.0-33.0); MEAN CORPUSCULAR HGB CONC 32.1 g/dL (32.0-36.0); MEAN CORPUSCULAR VOLUME 83.1 fL (79-99); PLATELET COUNT (AUTO) 222 K/uL (130-400); RED BLOOD CELL COUNT(AUTO) 3.64 MIL/uL (4.00-5.50); RED CELL DISTRIBUTION WIDTH 18.7 % (11.0-15.5); WHITE BLOOD COUNT (AUTO) 19.8 K/uL (4.8-10.8)
[2018-01-14 02:11] LABS: INR 3.34 (0.85-1.15); PROTHROMBIN TIME 34.3 SEC (9.6-11.6)
[2018-01-14 02:16] LABS: CREATININE 1.4 mg/dL (0.5-1.5)
[2018-01-14 02:31] LABS: CREATINE KINASE MB 3.5 ng/mL (0.5-3.6); TROPONIN I 0.06 ng/mL (0.00-0.06)
[2018-01-14] MEDS: ACETYLCYSTEINE 20% 200MG/ML 4ML VIAL IH SCH ×2 (05:56→11:26)
[2018-01-14] MEDS: IPRATROPIUM/ALBUTEROL SULFATE 3 ML SOLUTION IH SCH ×3 (05:57→18:44)
[2018-01-14] MEDS: INSULIN HUMULIN R 100 UNIT/ML 3ML SQ SCH ×4 (06:16→21:27)
[2018-01-14] MEDS: BUDESONIDE 0.5 MG/2 ML INH IH SCH ×2 (06:24→19:00)
[2018-01-14] MEDS: SILVER SULFADIAZINE CREAM 50 GM TP SCH ×2 (06:30→10:36)
[2018-01-14] MEDS: GUAIFENESIN SUGAR-FREE 100 MG/5 ML UDCUP PO PRN ×2 (06:33→21:30)
[2018-01-14] MEDS: PREDNISONE 20 MG TABLET PO SCH (08:27)
[2018-01-14] MEDS: GABAPENTIN 300 MG CAPSULE PO SCH (08:27)
[2018-01-14] MEDS: DILTIAZEM HCL 120 MG CAP.SR.24H PO SCH (08:28)
[2018-01-14] MEDS: SOTALOL HCL 80 MG TABLET PO SCH ×2 (08:28→21:29)
[2018-01-14] MEDS: SPIRONOLACTONE 25 MG TAB PO SCH (08:28)
[2018-01-14] MEDS: FAMOTIDINE 20MG TAB 20 MG TAB PO SCH ×2 (08:28→21:23)
[2018-01-14] MEDS: GLIMEPIRIDE 2 MG TABLET PO SCH (08:29)
[2018-01-14] MEDS: BENZONATATE 100 MG CAPSULE PO SCH ×3 (08:32→21:23)
[2018-01-14] MEDS: DOXYCYCLINE HYCLATE 100 MG TABLET PO SCH ×2 (08:32→21:28)
[2018-01-14] MEDS: ASPIRIN 81MG TAB.CHEW PO SCH (08:33)
[2018-01-14] MEDS ORDERED: SILVER SULFADIAZINE CREAM 400 GM TP SCH (09:00)
[2018-01-14] MEDS ORDERED: WARFARIN SODIUM 2 MG TAB PO SCH (16:26)
[2018-01-14] MEDS: DOXAZOSIN MESYLATE 2 MG TABLET PO SCH (21:23)
[2018-01-14] MEDS: ATORVASTATIN CALCIUM 40 MG TABLET PO SCH (21:23)
[2018-01-14] MEDS: ROPINIROLE HCL 1 MG TABLET PO SCH (21:23)
[2018-01-14] MEDS: LOSARTAN 50 MG TABLET PO SCH (21:23)
[2018-01-14] MEDS: ZOLPIDEM TARTRATE 5 MG TAB PO PRN (21:30)
[2018-01-15] MEDS: IPRATROPIUM/ALBUTEROL SULFATE 3 ML SOLUTION IH SCH ×5 (00:40→23:52)
[2018-01-15 03:52] VITALS: BP 163/71
[2018-01-15 04:24] LABS: HEMATOCRIT 27.1 % (36-48); MEAN CORPUSCULAR HEMOGLOBIN 27.3 pg (27.0-33.0); MEAN CORPUSCULAR HGB CONC 33.6 g/dL (32.0-36.0); MEAN CORPUSCULAR VOLUME 81.3 fL (79-99); PLATELET COUNT (AUTO) 180 K/uL (130-400); RED BLOOD CELL COUNT(AUTO) 3.33 MIL/uL (4.00-5.50); RED CELL DISTRIBUTION WIDTH 18.4 % (11.0-15.5)
[2018-01-15 04:29] LABS: CREATININE 1.1 mg/dL (0.5-1.5); POTASSIUM 3.9 mmol/L (3.5-5.1)
[2018-01-15] MEDS: INSULIN HUMULIN R 100 UNIT/ML 3ML SQ SCH ×4 (06:03→21:05)
[2018-01-15] MEDS: BUDESONIDE 0.5 MG/2 ML INH IH SCH ×2 (07:15→20:12)
[2018-01-15 07:30] VITALS: BP 135/68
[2018-01-15] MEDS: GABAPENTIN 300 MG CAPSULE PO SCH (08:23)
[2018-01-15] MEDS: DILTIAZEM HCL 120 MG CAP.SR.24H PO SCH (08:23)
[2018-01-15] MEDS: BENZONATATE 100 MG CAPSULE PO SCH ×3 (08:23→20:53)
[2018-01-15] MEDS: ASPIRIN 81MG TAB.CHEW PO SCH (08:24)
[2018-01-15] MEDS: SILVER SULFADIAZINE CREAM 50 GM TP SCH (08:24)
[2018-01-15] MEDS: SOTALOL HCL 80 MG TABLET PO SCH ×2 (08:24→20:53)
[2018-01-15] MEDS: GLIMEPIRIDE 2 MG TABLET PO SCH (08:24)
[2018-01-15] MEDS: PREDNISONE 20 MG TABLET PO SCH (08:24)
[2018-01-15] MEDS: SPIRONOLACTONE 25 MG TAB PO SCH (08:24)
[2018-01-15] MEDS: FAMOTIDINE 20MG TAB 20 MG TAB PO SCH ×2 (08:24→20:53)
[2018-01-15] MEDS: DOXYCYCLINE HYCLATE 100 MG TABLET PO SCH ×2 (09:51→20:53)
[2018-01-15] MEDS: GUAIFENESIN SUGAR-FREE 100 MG/5 ML UDCUP PO PRN (10:43)
[2018-01-15 11:22] VITALS: BP 132/47
[2018-01-15] MEDS ORDERED: WARFARIN SODIUM 2 MG TAB PO SCH (16:00)
[2018-01-15] MEDS ORDERED: WARFARIN SODIUM 5 MG TAB PO SCH (16:00)
[2018-01-15 16:11] VITALS: BP 134/65
[2018-01-15 19:23] VITALS: BP 144/86
[2018-01-15] MEDS: ROPINIROLE HCL 1 MG TABLET PO SCH (20:53)
[2018-01-15] MEDS: DOXAZOSIN MESYLATE 2 MG TABLET PO SCH (20:53)
[2018-01-15] MEDS: LOSARTAN 50 MG TABLET PO SCH (20:53)
[2018-01-15] MEDS: ATORVASTATIN CALCIUM 40 MG TABLET PO SCH (20:53)
[2018-01-15] MEDS: ZOLPIDEM TARTRATE 5 MG TAB PO PRN (20:57)
[2018-01-16] VITALS: BP 136/58
[2018-01-16 04:00] VITALS: BP 113/40
[2018-01-16] MEDS: INSULIN HUMULIN R 100 UNIT/ML 3ML SQ SCH ×2 (06:14→12:08)
[2018-01-16] MEDS: IPRATROPIUM/ALBUTEROL SULFATE 3 ML SOLUTION IH SCH ×2 (06:55→11:33)
[2018-01-16 07:00] VITALS: BP 155/80
[2018-01-16] MEDS: BUDESONIDE 0.5 MG/2 ML INH IH SCH (07:03)
[2018-01-16] MEDS: DOXYCYCLINE HYCLATE 100 MG TABLET PO SCH (09:31)
[2018-01-16] MEDS: PREDNISONE 20 MG TABLET PO SCH (09:31)
[2018-01-16] MEDS: DILTIAZEM HCL 120 MG CAP.SR.24H PO SCH (09:31)
[2018-01-16] MEDS: BENZONATATE 100 MG CAPSULE PO SCH ×2 (09:32→14:00)
[2018-01-16] MEDS: SOTALOL HCL 80 MG TABLET PO SCH (09:32)
[2018-01-16] MEDS: GLIMEPIRIDE 2 MG TABLET PO SCH (09:32)
[2018-01-16] MEDS: GABAPENTIN 300 MG CAPSULE PO SCH (09:32)
[2018-01-16] MEDS: FAMOTIDINE 20MG TAB 20 MG TAB PO SCH (09:33)
[2018-01-16] MEDS: SPIRONOLACTONE 25 MG TAB PO SCH (09:33)
[2018-01-16] MEDS: ASPIRIN 81MG TAB.CHEW PO SCH (09:34)
[2018-01-16] MEDS: SILVER SULFADIAZINE CREAM 50 GM TP SCH (09:35)
[2018-01-16] MEDS ORDERED: DOXY100T2 PO (10:18)
[2018-01-16] MEDS ORDERED: LOSA50TA2 PO (10:18)
[2018-01-16 11:26] VITALS: BP 132/49
[2018-01-16 16:20] VITALS: BP 97/46
== END 2018-01-16 15:10 | disposition home or self-care (01) ==
LOC: EDH 11:00 → EDHIP 14:23 → 2CH 16:36
PROVIDERS: ADMIT Internal Medicine; ATTEND Internal Medicine
DX: R55 Syncope and collapse (principal); J44.9 Chronic obstructive pulmonary disease, unspecified; E11.9 Type 2 diabetes mellitus without complications; I25.10 Atherosclerotic heart disease of native coronary artery without angina pectoris; J96.10 Chronic respiratory failure, unspecified whether with hypoxia or hypercapnia; I35.1 Nonrheumatic aortic (valve) insufficiency; I48.91 Unspecified atrial fibrillation; E78.5 Hyperlipidemia, unspecified; I50.33 Acute on chronic diastolic (congestive) heart failure; I11.0 Hypertensive heart disease with heart failure; T23.202A Burn of second degree of left hand, unspecified site, initial encounter; X08.8XXA Exposure to other specified smoke, fire and flames, initial encounter; Y93.89 Activity, other specified; Y92.89 Other specified places as the place of occurrence of the external cause; Y99.8 Other external cause status; Z85.038 Personal history of other malignant neoplasm of large intestine; Z87.891 Personal history of nicotine dependence; Z95.1 Presence of aortocoronary bypass graft; Z95.2 Presence of prosthetic heart valve; Z99.81 Dependence on supplemental oxygen; Z79.01 Long term (current) use of anticoagulants
CPT/HCPCS: 36415 ×3; 70450; 71045 ×2; 80048 ×3; 81003; 82550 ×2; 82553 ×3; 82947; 82948 ×14; 83874 ×2; 83880; 84484 ×3; 85025; 85027 ×2; 85610 ×2; 85730; 87804 ×2; 93005 ×3; 94640 ×18; 94664; 96372 ×4; 96374; 97039; 97116 ×3; 97161; 99285; A6446 ×4; G0378 ×73; G8978; G8979; G8980; G8981; G8982; G8983; J1815 ×10; J2930; J3490; J7608 ×2

== ENCOUNTER → 2018-09-16 | Outpatient (CLI) | payer OTHER ==
[~2018-09-16] MED LIST changes: -CARV25TA PO; -CELE200 PO; +DOXY100T2 PO; -LOSA100T29 PO; +LOSA50TA2 PO; +METF-445 PO; -METF850T2 PO; -SPIR25TA4 PO; +SPIR25TA6 PO
== END | disposition home or self-care (01) ==
LOC: RAH 11:12
PROVIDERS: ATTEND Family Medicine
DX: M17.12 Unilateral primary osteoarthritis, left knee (principal)
CPT/HCPCS: 73562

== ENCOUNTER 2022-12-16 18:22 | Emergency (ER) | payer OTHER ==
[~2022-12-16] VITALS: Ht 157.5 cm; Wt 84.8 kg
[~2022-12-16 18:22] MED LIST changes: +ACET-2247 PO; +BUDE0.5A3 IH; +CEPH-578 PO; -DOXA4TAB3 PO; +DOXA8TAB81 PO; -DOXY100T2 PO; -ESCI5TAB10 PO; +FISH1CAP27 PO; +FLUT1BLS IH; +FURO40SO PO; -FURO40TA5 PO; -GABA-531 PO; -GLIM1TAB2 PO; +GLIP5TAB11 PO; +IPRAHFA IH; +LABE200T7 PO; -LOSA50TA2 PO; -METF-445 PO; +MOM30 PO; -OMEG100T PO; +OMEP20CA12 PO; -OMEP20TA25 PO; +POLY17PO4 PO; -ROPI0.5T5 PO; +ROPI0.5T7 PO; -SPIR25TA6 PO; -TRAM50TA4 PO; -TYLENOL PM PO; -WARF3TAB29 PO; +WARF6TAB23 PO
[2022-12-16] MEDS ORDERED: ACETAMINOPHEN 500 MG TABLET PO ONE (20:00)
[2022-12-16 21:16] VITALS: BP 141/64
[2022-12-16] MEDS ORDERED: TRAMADOL HCL 50 MG TABLET PO ONE (21:30)
== END 2022-12-16 21:14 | disposition home or self-care (01) ==
LOC: EDH 18:22
DX: M25.521 Pain in right elbow (principal); I12.9 Hypertensive chronic kidney disease with stage 1 through stage 4 chronic kidney disease, or unspecified chronic kidney disease; E11.22 Type 2 diabetes mellitus with diabetic chronic kidney disease; N18.9 Chronic kidney disease, unspecified; I25.10 Atherosclerotic heart disease of native coronary artery without angina pectoris; Z79.51 Long term (current) use of inhaled steroids; Z79.82 Long term (current) use of aspirin; Z79.84 Long term (current) use of oral hypoglycemic drugs; Z88.5 Allergy status to narcotic agent; Z95.1 Presence of aortocoronary bypass graft
CPT/HCPCS: 73080